=== PATIENT | male | born 1935 | race Caucasian/White ===

== ENCOUNTER 2022-03-21 08:17 | Outpatient (CLI) | payer MEDICARE, OTHER, SELFPAY ==
--- NOTE | ~2022-03-21 | CT_ITS ---
EXAMINATION: CT brain wo con DATE: 03/21/2022 08:35 INDICATION: Memory loss. TECHNIQUE: Computed tomography (CT) of the head was performed without intravenous contrast. The mA wa s adjusted according to patient size. Iterative reconstruction technique was employed. The dose-lengt h product was 605.33 mGy-cm. COMPARISON: Brain MRI 09/01/2010 FINDINGS: There is no intracranial hemorrhage, acute infarction, or abnormal intracranial mass lesion . There are scattered areas of low attenuation in the cerebral white matter, which is within normal l imits for the patient's age. The ventricles are normal in size. There is mild mucosal thickening in t he paranasal sinuses. The orbits are normal. The mastoid air cells are normal. IMPRESSION: 1. Normal aging brain. Reviewed, dictated and finalized at location A. IMPRESSION: 1. Normal aging brain.
== END 2022-03-21 08:18 | disposition home or self-care (01) ==
PROVIDERS: PCP Family Medicine; Visit Provider Physician Assistant Medical
DX: R53.83 Other fatigue (principal); R41.3 Other amnesia
CPT/HCPCS: 70450

== ENCOUNTER 2022-06-07 14:27 | Inpatient (IN) | payer MEDICARE, OTHER, SELFPAY ==
[2022-06-07] VITALS (9 sets, daily range): BP systolic 118–176; BP diastolic 59–99; PULSE 64–95; RESP 14–23; TEMP 36.3–36.5; O2SAT 95–100; BMI 20.7
--- NOTE | ~2022-06-07 | CT_ITS ---
EXAMINATION: CT abdomen pelvis w con DATE: 06/07/2022 16:56 INDICATION: Hernia. TECHNIQUE: Computed tomography (CT) of the abdomen and pelvis was performed with 100 cc Omnipaque 350 intravenous contrast. The dose-length product was 235.36 mGy-cm. Automated exposure control and iter ative reconstruction technique were employed. COMPARISON: None. FINDINGS: Lung bases are unremarkable. Heart size normal. There is atherosclerosis. Status post moustapha cystectomy. Calcified granulomas of the spleen. The pancreas, adrenal glands are unremarkable. There are bilateral renal cysts, largest in the left kidney measuring 6.2 cm. There are bilateral inguinal hernias with fluid in the right inguinal canal. Bladder is unremarkable. Prostate gland is enlarged. Colonic diverticulosis without evidence for diverticulitis. No free air or free fluid. Small sclerotic lesion left ilium posteriorly, nonspecific. No additional lytic or danni stic lesions. There is atherosclerosis of the aorta without aneurysm. No lymphadenopathy. IMPRESSION: 1. Bilateral inguinal hernias with the right hernia containing fluid. 2: Sclerotic lesion of the left ilium. Cannot exclude metastatic disease. Correlate for history of ma lignancy. Reviewed, dictated and finalized at location A. IAC REHABILITATION SPECIALIST IMPRESSION: 1. Bilateral inguinal hernias with the right hernia containing fluid. 2: Sclerotic lesion of the left ilium. Cannot exclude metastatic disease. Corre late for history of malignancy.
[2022-06-07] MEDS: SODIUM CHLORIDE 0.9% IV 1,000 ML 999 ML IV CONT (16:21)
[2022-06-07 16:22] LABS: Basophils Absolute Auto 0.1 K/mm3 (0.0-0.1); Eosinophils Absolute Auto 0.1 K/mm3 (0-0.3); Eosinophils Percent Auto 1.1 % (0-4.4); Hematocrit 50.3 % (42.0-52.0); Hemoglobin 16.6 g/dL (14.0-18.0); Immature Granulocyte Absolute 0.02 K/mm3 (0.00-0.031); Immature Granulocyte Percent A 0.3 % (0-0.5); Lymphocytes Absolute Auto 0.93 K/mm3 (0.9-3.2); Lymphocytes Percent Auto 12.7 % (18.3-44.2); Mean Corpuscular Hemoglobin 30.4 pg (26-34); Mean Corpuscular Volume 92.1 fl (80-100); Mean Platelet Volume 9.9 fl (7.4-10.4); Monocytes Absolute Auto 0.6 K/mm3 (0.1-0.6); Monocytes Percent Auto 8.6 % (2.6-8.5); Neutrophils Absolute Auto 5.6 K/mm3 (1.3-6.7); Neutrophils Percent Auto 76.3 % (45.5-73.1); Platelet Count Result 233 k/mm3 (150-375); Red Blood Count 5.46 M/mm3 (4.6-6.20); Red Cell Distribution Width 12.7 % (11.5-14.5); White Blood Count 7.3 K/mm3 (4.5-10.0)
[2022-06-07] MEDS: HYDROmorphone HCL INJ (*CRX) 1 MG/ML SYR IV PUSH (16:22)
[2022-06-07 16:33] LABS: Lactic Acid Reflex 0.8 mmol/L (0.7-2.0)
[2022-06-07 16:34] LABS: INR 1.1; Partial Thromboplastin Time 30.4 SECONDS (22.3-36.8); Prothrombin Time 13.6 Seconds (11.1-14.7)
[2022-06-07 16:35] LABS: Alanine Aminotransferase 23 U/L (6-50); Albumin Level 3.9 g/dL (3.5-5.1); Alkaline Phosphatase 69 U/L (38-126); Anion Gap 8 mmol/L (8-16); Aspartate Amino Transferase 24 U/L (17-59); Bilirubin,Total 0.7 mg/dL (0.2-1.3); Blood Urea Nitrogen 13 mg/dL (9-20); Calcium 8.7 mg/dL (8.4-10.2); Carbon Dioxide 26 mmol/L (22-30); Chloride 105 mmol/L (98-107); Estimated CRCL calculation 46 ml/min; Estimated Glomerular Filt Rate > 60; Glucose 102 mg/dL (65-110); Potassium 4.1 mmol/L (3.4-5.0); Sodium 139 mmol/L (137-145)
--- NOTE | 2022-06-07 18:07 | ED.ABDPAIN ---
HPI - Abdominal Pain General Chief Complaint: Abdominal Pain Stated Complaint: Hernia Time Seen by Provider: 06/07/22 15:42 History of Present Illness HPI narrative: Patient is an 86-year-old male who presents to the ER with right inguinal pain. Reports he is walking on a treadmill last night when his leg came off the side and he felt a stretching pain in his right groin. He then woke today and had swelling and pain in the groin. He went to his PCPs office who attempted to reduce what is believed to be an inguinal hernia. Patient did not tolerate this. He has pain with any type of movement though he is still able to ambulate. Reports he has not had a bowel movement today and is unsure if he is passed gas. No abdominal distention or vomiting. No fevers or chills or sweats. Reports he is otherwise healthy. Related Data Allergies Allergy/AdvReac Type Severity Reaction Status Date / Time No Known Allergies Allergy Unknown Verified 06/07/22 13:42 Review of Systems Review of Systems: All systems reviewed & are unremarkable except as noted in HPI and below Constitutional: Constitutional: Denies chills, Denies fatigue and Denies fever(s) ENT: Denies nasal congestion and Denies sore throat Cardiovascular: Cardiovascular: Denies chest pain, Denies rapid heart rate and Denies radiating jaw, neck or arm pain Respiratory: Respiratory: Denies cough and Denies dyspnea Gastrointestinal: Gastrointestinal: Denies abdominal pain, Denies bloating, Reports constipation, Denies nausea and Denies vomiting Comments: Inguinal mass Genitourinary: Genitourinary: Denies hematuria, Denies dysuria and Denies urinary frequency Musculoskeletal: Musculoskeletal: Denies back pain, Denies arthralgias and Denies joint swelling [facility] Past Medical History Medical History (Updated 06/07/22 @ 22:02 by Ernie Johnson MD) Neck pain Surgical History Surgical History (Updated 06/07/22 @ 21:58 by Ernie Johnson MD) History of appendectomy Social History Social History (Updated 06/07/22 @ 13:43 by Aliya Hunter SENIOR [employer]BILE SOLUTIONS ARCHITECT) Smoking status: Never smoker Second hand tobacco smoke exposure: No Alcohol intake: never Substance use: never Substance use type: does not use Lack of Transportation: No Lack of Food: Never True Current Housing: I Have Housing Concerned About Future Housing: No Difficulty Paying Gas/Electric Bills: No Difficulty Paying for Meds: No Currently Unemployed: No Difficulty w/ Childcare or Family Care: No Gender identity (if verbalized by the patient): Male Spiritual care concerns: No Agree to blood products: Yes Exam Narrative: GENERAL: Uncomfortable-appearing, well-nourished, and in no acute distress. HEAD: Normocephalic, atraumatic. ENT: Mucous membranes moist. NECK: Supple. CHEST: Clear to auscultation. No respiratory distress. HEART: Regular rate and rhythm. Normal peripheral pulses. ABDOMEN: Soft, nontender, nondistended, normal active bowel sounds. Large mass right inguinal region consistent with inguinal hernia. Very tender to palpation. No erythema. No involvement into the scrotum. EXTREMITIES: Normal range of motion. No edema. SKIN: Warm, dry, no rash. NEURO: Alert and oriented x3. PSYCH: Normal mood and affect. Procedures Procedural Sedation Procedural Sedation #1: Procedural Sedation Date: 06/07/22 Procedural Sedation Time: 18:43 Presedation Evaluation: Patient awake alert and oriented. Having pain due to incarcerated right inguinal hernia. Procedure: Hernia reduction. Provider Performed: other (Sedation performed by Dr. Dominguez, procedure performed by Dr. Johnson.) Time Out: 1293 Informed Consent Obtained: yes Equipment in Room: bag and mask, capnography, coffin maker, crash cart, oxygen, pulse oximeter and suction Plan for Sedation: moderate sedation ASA Class: II Mallampati Classificatio
--- NOTE | 2022-06-07 18:52 | PC.NURSE ---
DR. SCHWAB ADMINISTERED THIS PT 10MG ETOMIDATE AT 1843
[2022-06-07 20:23] LABS: SARS-CoV-2 RNA PCR Negative
[2022-06-07] MEDS: SODIUM CHLORIDE 0.9% IV 1,000 ML 100 ML IV CONT (21:33)
[2022-06-07] MEDS: MORPHINE SULFATE (*CRX) 4 MG/ML INJ IV PUSH (21:33)
[2022-06-08] VITALS (16 sets, daily range): BP systolic 103–142; BP diastolic 51–82; PULSE 70–83; RESP 11–20; TEMP 36.4–37.3; O2SAT 97–100
[2022-06-08] MEDS: LORazepam INJ (*CRX) 2 MG/ML VIAL 0.5 MG IV PUSH ×2 (00:21→23:07)
--- NOTE | 2022-06-08 00:29 | PC.NURSE ---
Patient admitted to 342 from ER with [facility]. Pt alert to self and at times-to place. Forgetful, impulsive, periods of crying when upset. Poor short term memory. Refers to past events frequently. Cannot remember to follow given instructions. Given morphine 4mg for hernia pain with no relief of pain Gets out of bed every couple of minutes , states he has to urinate. Voided 50ml upon arrival to unit then another 50ml or less in BSC. Patient wanted all clothes off. IV continually alarms due to AC placement. New site started and IVF moved. Bed alarm on. Pt attempts to get out of bed as soon as staff leaves room, states needs to urinate. Pt unable to do so. Bladder scan shows approximately 100ml. Charge nurse and nurse airport operations supervisor notified of pt's impulsive behavior. Attending notified- order received for tadeo and ativan. Inserted 16F tadeo 200ml return cl yellow over 10-15mintues. This nurse sat in patient's room, while pt crying and pulling at tadeo. Then stated he had to have BM . Up to BSC x10 min- no BM. Given ativan --pt asleep 15min later. Bed alarm on.frequent rounding. NPO for possible surgery in am
[2022-06-08 06:30] LABS: Basophils Absolute Auto 0.1 K/mm3 (0.0-0.1); Basophils Percent Auto 0.7 % (0.2-1.2); Eosinophils Absolute Auto 0.1 K/mm3 (0-0.3); Eosinophils Percent Auto 1.5 % (0-4.4); Hemoglobin 15.5 g/dL (14.0-18.0); Immature Granulocyte Absolute 0.02 K/mm3 (0.00-0.031); Immature Granulocyte Percent A 0.3 % (0-0.5); Lymphocytes Absolute Auto 1.04 K/mm3 (0.9-3.2); Lymphocytes Percent Auto 13.9 % (18.3-44.2); Mean Corpuscular Hemoglobin 30.6 pg (26-34); Mean Corpuscular Volume 92.9 fl (80-100); Mean Platelet Volume 9.7 fl (7.4-10.4); Monocytes Absolute Auto 0.8 K/mm3 (0.1-0.6); Monocytes Percent Auto 11.2 % (2.6-8.5); Neutrophils Absolute Auto 5.4 K/mm3 (1.3-6.7); Neutrophils Percent Auto 72.4 % (45.5-73.1); Platelet Count Result 187 k/mm3 (150-375); Red Blood Count 5.06 M/mm3 (4.6-6.20); Red Cell Distribution Width 12.5 % (11.5-14.5); White Blood Count 7.5 K/mm3 (4.5-10.0)
--- NOTE | 2022-06-08 06:37 | PC.NURSE ---
After pt received ativan , pt slept rest of the night. Per pt at 0630, I don't know what you did , but your a miracle worker Pt calm, relaxed. no further attempts to exit bed. Spouse called to get pt status. Spouse stated that the plan would be for pt to return home with her. Per spouse, the daughter is the POA. Pt remains NPO
[2022-06-08 06:42] LABS: Alanine Aminotransferase 20 U/L (6-50); Albumin Level 3.5 g/dL (3.5-5.1); Alkaline Phosphatase 57 U/L (38-126); Anion Gap 5 mmol/L (8-16); Aspartate Amino Transferase 29 U/L (17-59); Bilirubin,Total 0.9 mg/dL (0.2-1.3); Blood Urea Nitrogen 9 mg/dL (9-20); Calcium 8.2 mg/dL (8.4-10.2); Carbon Dioxide 24 mmol/L (22-30); Chloride 105 mmol/L (98-107); Estimated CRCL calculation 57 ml/min; Estimated Glomerular Filt Rate > 60; Glucose 81 mg/dL (65-110); Potassium 3.6 mmol/L (3.4-5.0); Sodium 134 mmol/L (137-145)
[2022-06-08] MEDS: SODIUM CHLORIDE 0.9% IV 1,000 ML 100 ML IV CONT (06:53)
--- NOTE | 2022-06-08 11:11 | PM.IMHP ---
H&P: HPI History of Present Illness Date/Time: 06/08/22 11:11 Chief Complaint: Right groin pain Narrative: patient is an 86-year-old man who was walking on a treadmill the night before last. His leg came off the side any felt a stretching pain in his right groin. He woke up today with a lump in the right groin and pain. He saw his primary care physician who tried to reduce the right inguinal hernia and was unsuccessful. He came to the emergency room last night. Attempts were made to reduce this hernia under sedation. These were temporarily successful but the lump has recurred and remains painful. Through the night he had the sensation of needing to urinate. A Burroughs catheter was placed. 850 cc of urine since midnight has been recorded per the Burroughs catheter. He is seen this morning and still has an incarcerated right inguinal hernia. He is taken to surgery today for repair. Review of Systems Review of Systems: All systems reviewed & are unremarkable except as noted in HPI and below ( HPI and those items noted below) Constitutional: Constitutional: Denies chills and Denies fever(s) Cardiovascular: Cardiovascular: Denies chest pain, Denies diaphoresis, Denies dyspnea and Denies paroxysmal nocturnal dyspnea Respiratory: Respiratory: Denies chest congestion, Denies cough and Denies dyspnea Integumentary/Breasts: Skin/Breast: Denies lesions and Denies rash PMFSH Past Medical History Medical History Neck pain Surgical History Surgical History History of appendectomy Social History Social History Smoking status: Former smoker Tobacco type: cigarettes Second hand tobacco smoke exposure: No Alcohol intake: never Substance use: never Substance use type: does not use Lack of Transportation: No Lack of Food: Never True Current Housing: I Have Housing Concerned About Future Housing: No Difficulty Paying Gas/Electric Bills: No Difficulty Paying for Meds: No Currently Unemployed: No Education: High School Diploma/GED Difficulty w/ Childcare or Family Care: No Gender identity (if verbalized by the patient): Male Spiritual care concerns: No Agree to blood products: Yes Meds Home Medications and Allergies Home Medications Medication Instructions Recorded Confirmed Type sertraline 25 mg tablet 25 mg PO DAILY #30 tabs 04/10/22 06/07/22 Rx Allergies Allergy/AdvReac Type Severity Reaction Status Date / Time No Known Allergies Allergy Unknown Verified 06/07/22 13:42 Vital Signs Vital Signs - 24 hr 06/07/22 14:28 06/07/22 18:41 06/07/22 18:45 Temperature 36.5 C 36.4 C 36.4 C Pulse Rate 95 Pulse Rate [Monitor] 64 95 Respiratory Rate 16 18 23 H Blood Pressure 176/75 H Blood Pressure [Left Arm] 145/70 H 167/99 H Pulse Oximetry 100 100 95 Oxygen Delivery Room Air Room Air Nasal Cannula Oxygen Flow Rate 4 06/07/22 19:00 06/07/22 19:15 06/07/22 18:50 Temperature 36.4 C 36.3 C L 36.4 C Pulse Rate Pulse Rate [Monitor] 88 85 84 Respiratory Rate 21 H 14 20 Blood Pressure Blood Pressure [Left Arm] 118/76 164/80 H 169/65 H Pulse Oximetry 100 100 99 Oxygen Delivery Nasal Cannula Nasal Cannula Nasal Cannula Oxygen Flow Rate 4 4 4 06/07/22 18:55 06/07/22 19:30 06/07/22 21:18 Temperature 36.3 C L 36.3 C L 36.4 C Pulse Rate 86 Pulse Rate [Monitor] 79 87 Respiratory Rate 22 H 18 20 Blood Pressure 145/85 H Blood Pressure [Left Arm] 140/59 L 146/86 H Pulse Oximetry 100 100 98 Oxygen Delivery Nasal Cannula Room Air Oxygen Flow Rate 4 06/08/22 00:00 06/08/22 04:00 Temperature 36.4 C 36.8 C Pulse Rate 81 80 Pulse Rate [Monitor] Respiratory Rate 20 20 Blood Pressure 139/72 103/82 Blood Pressure [Left Arm] Pulse Oximetry 97 98 Oxygen Delivery Oxygen Flow Rate Exam Co
--- NOTE | 2022-06-08 11:21 | WPDHPUPDATE1 ---
History and Physical Update Update Date/Time: 06/08/22 11:21 History and Physical has been reviewed, including an updated exam of the patient. There are NO changes in the patient's condition. Risks, benefits, and alternatives have been discussed and questions answered. Patient agrees to proceed with procedure.
--- NOTE | 2022-06-08 12:27 | WPDANESEPPF ---
Anes - Initial Pre Proc Eval Procedure: Operation Date: 06/08/22 12:00 Proposed Procedures p Open Right Incarcerated Inguinal Hernia Repair(Right) - Michael Cao MD Date/Time: 06/08/22 12:27 Surgeon: Michael Cao MD Pre Op Diagnosis: Incarcerated Hernia Patient Data Age: 86 Gender: M Height: 1.7 m Weight: 60.2 kg Last Vital Signs Temp 37.1 C 06/08/22 12:05 Pulse 71 06/08/22 12:05 Resp 16 06/08/22 12:05 BP 115/51 L 06/08/22 12:05 Pulse Ox 99 06/08/22 12:05 O2 Del Method Room Air 06/07/22 19:30 O2 Flow Rate 4 06/07/22 19:15 Allergies Allergy/AdvReac Type Severity Reaction Status Date / Time No Known Allergies Allergy Unknown Verified 06/07/22 13:42 Home Medications Medication Instructions Recorded Confirmed Type sertraline 25 mg tablet 25 mg PO DAILY #30 tabs 04/10/22 06/07/22 Rx Laboratory Tests 06/07/22 06/07/22 06/07/22 16:17 16:17 16:17 WBC 7.3 K/mm3 K/mm3 (4.5-10.0) RBC 5.46 M/mm3 M/mm3 (4.6-6.20) Hgb 16.6 g/dL g/dL (14.0-18.0) Hct 50.3 % % (42.0-52.0) MCV 92.1 fl fl (80-100) MCH 30.4 pg pg (26-34) MCHC 33.0 g/dl g/dl (32-36) RDW 12.7 % % (11.5-14.5) Plt Count 233 k/mm3 k/mm3 (150-375) MPV 9.9 fl fl (7.4-10.4) Immature Gran % (Auto) 0.3 % % (0-0.5) Neut % (Auto) 76.3 % H % (45.5-73.1) Lymph % (Auto) 12.7 % L % (18.3-44.2) [place] % (Auto) 8.6 % H % (2.6-8.5) Eos % (Auto) 1.1 % % (0-4.4) Baso % (Auto) 1.0 % % (0.2-1.2) Lymph # (Auto) 0.93 K/mm3 K/mm3 (0.9-3.2) [place] # (Auto) 0.6 K/mm3 K/mm3 (0.1-0.6) Eos # (Auto) 0.1 K/mm3 K/mm3 (0-0.3) Baso # (Auto) 0.1 K/mm3 K/mm3 (0.0-0.1) Abs Immat Gran (auto) 0.02 K/mm3 K/mm3 (0.00-0.031) Absolute Neuts (auto) 5.6 K/mm3 K/mm3 (1.3-6.7) Absolute Nucleated RBC 0.0 K/mm3 K/mm3 (0.0-0.012) Nucleated RBC % 0.0 % % (0.0-0.2) PT 13.6 Seconds Seconds (11.1-14.7) INR 1.1 APTT 30.4 SECONDS SECONDS (22.3-36.8) Sodium 139 mmol/L mmol/L (137-145) Potassium 4.1 mmol/L mmol/L (3.4-5.0) Chloride 105 mmol/L mmol/L (98-107) Carbon Dioxide 26 mmol/L mmol/L (22-30) Anion Gap 8 mmol/L mmol/L (8-16) BUN 13 mg/dL mg/dL (9-20) Creatinine 0.90 mg/dL mg/dL (0.7-1.3) Estim Creat Clear Calc 46 ml/min ml/min Estimated GFR > 60 (59 - ) Glucose 102 mg/dL mg/dL (65-110) Lactic Acid Calcium 8.7 mg/dL mg/dL (8.4-10.2) Total Bilirubin 0.7 mg/dL mg/dL (0.2-1.3) AST 24 U/L U/L (17-59) ALT 23 U/L U/L (6-50) Alkaline Phosphatase 69 U/L U/L (38-126) Total Protein 7.0 g/dL g/dL (6.3-8.2) Albumin 3.9 g/dL g/dL (3.5-5.1) SARS-CoV-2 RNA (RT-PCR) 06/07/22 06/07/22 06/08/22 16:17 19:44 06:17 WBC 7.5 K/mm3 K/mm3 (4.5-10.0) RBC 5.06 M/mm3 M/mm3 (4.6-6.20) Hgb 15.5 g/dL g/dL (14.0-18.0) Hct 47.0 % % (42.0-52.0) MCV 92.9 fl fl (80-100) MCH 30.6 pg pg (26-34) MCHC 33.0 g/dl g/dl (32-36) RDW 12.5 % % (11.5-14.5) Plt Count 187 k/mm3 k/mm3 (150-375) MPV 9.7 fl fl (7.4-10.4) Immature Gran % (Auto) 0.3 % % (0-0.5) Neut % (Auto) 72.4 % % (45.5-73.1) Lymph % (Auto) 13.9 % L % (18.3-44.2) [place] % (Auto) 11.2 % H % (2.6-8.5) Eos % (Auto) 1.5 % % (0-4.4) Baso % (Auto) 0.7 % % (0.2-1.2) Lymph # (Auto) 1.04 K/mm3 K/mm3 (0.9-3.2) [place] # (Auto) 0.8 K/mm3 H K/mm3 (0.1-0.6) Eos # (Auto) 0.1 K/mm3 K/mm3 (0-0.3) Baso
[2022-06-08] MEDS: ceFAZolin 2 GM/D5W 50 ML 2 GM/50 ML BAG IVPB (12:50)
[2022-06-08] MEDS: BUPIVACAINE HCL 0.5% PF 30 ML VIAL INFILTRATE (12:55)
[2022-06-08] MEDS: LACTATED RINGERS 1,000 ML 30 ML IV CONT (13:46)
--- NOTE | 2022-06-08 13:52 | W.PM.PROC2 ---
Procedure Note - Detailed Date of Procedure 06/08/22 Pre-op Diagnosis Incarcerated right inguinal hernia Post-op Diagnosis Other (Incarcerated recurrent right inguinal hernia) Procedure Performed Repair incarcerated recurrent right inguinal hernia with large PerFix Light plug and patch Surgeon Michael Cao MD Project Manager Process Development Carry more MANAGER CONFIGURATION Anesthesia General (G IV S), Local (0.5% bupivacaine) and None (Xaracoll) Indications Patient presented to the emergency room yesterday with a large right groin bulge and pain. It was partially reduced using sedation but came back. He then developed some urinary retention last night and had to have a catheter placed. He has a persistent incarcerated right inguinal hernia and is taken to surgery now for repair. Findings This was a small direct hernia. There was no bowel involvement. Description of Procedure Patient was taken to surgery and anesthesia was introduced. The right groin and genitalia were prepped and draped. Not noted on his preop exam but now evident with the better Light in surgery was the patient did have a right inguinal scar. The proposed incision was marked on the skin. Local anesthesia was infiltrated over the anticipated incision as well as into the subcutaneous. Incision was made and dissection was carried down through the subcutaneous. Crossing veins were cauterized and divided. It was obvious that the patient did have a previous right inguinal hernia as there were numerous Ethibond suture throughout the area. We dissected down to the external oblique aponeurosis. The aponeurosis was exposed as was the external ring. We then infiltrated local deep to the aponeurosis. The aponeurosis was opened laterally extended medially through the external ring. The leaves of the aponeurosis were free from the underlying inguinal canal contents including the large purplish incarcerated recurrent hernia. Once both the leaves of the aponeurosis were freed, the cord was mobilized medially and encircled with a Mcloud drain. The cord was further mobilized back to the internal ring. The ilioinguinal nerve was never seen on the cord. It was now evident this was the direct recurrence. The hernia sac was dissected free from the cord structures and the rest of the inguinal canal floor. It was dissected back to its neck. I then divided through the transversalis fascia circumferentially. This still left a very large sac and so I excised the hernia sac as well. I then used a 3-0 Vicryl to create a pursestring suture around the edges of the hernia sac to close it. I further reinforced this with a running suture to close the hernia sac over the pursestring. The sac was sent to pathology as a specimen. I dunked to the edges of the hernia sac into the retroperitoneum. A small, 1 cm opening was noted. I placed a Ray-Jaden into the defect to make some room for a hernia patch. I then used the large PerFix Light plug and placed it in the defect. The edges were sutured to the transversalis fascia with interrupted 3-0 Vicryl suture. I then cut the patch to the appropriate size. It was placed over the inguinal canal floor. The lateral leaves were passed beyond the cord. I then laid the 1st piece of Xaracoll over the patch. The cord was placed over the Xaracoll. The external oblique aponeurosis was closed with interrupted 3-0 Vicryl suture. The 2nd piece of Xaracoll was placed. Bel's fascia was closed with interrupted 3-0 Vicryl suture. The last piece of Xaracoll was placed in the subcutaneous. The skin was loosely approximated with interrupted subcuticular 4-0 Vicryl skin suture. Finally the skin was closed with a running 4-0 Monocryl skin suture. The wound was dressed with Exofin surgical adhesive. The patient was awakened and taken to recovery in good condition. Sponge and needle counts were correct x2. Implants Large PerFix Light plug and patch Estimated Blood Loss -5 Urine Output 125 Drains No Packin
--- NOTE | 2022-06-08 14:16 | SUR.PHASEI ---
1415: Simple mask removed.
[2022-06-08] MEDS: LACTATED RINGERS 1,000 ML 80 ML IV CONT (18:11)
[2022-06-08] MEDS: HYDROcodone/acetaminophen (*CRX) 7.5-325 MG TABLET 1 TAB PO (20:58)
[2022-06-08] MEDS: ENOXAPARIN 30 MG/0.3 ML SYRINGE SUB-Q (21:00)
[2022-06-08] MEDS: SENNA/DOCUSATE SODIUM TABLET 2 TAB PO (21:00)
[2022-06-08] MEDS: FAMOTIDINE 20 MG TABLET PO (21:05)
[2022-06-09] VITALS: BP 131/58; PULSE 90; RESP 24; TEMP 36.6; O2SAT 98
[2022-06-09 00:48] VITALS: BP 127/68; PULSE 84; RESP 20; TEMP 37.2; O2SAT 97
[2022-06-09] MEDS: MORPHINE SULFATE (*CRX) 4 MG/ML INJ 2 MG IV PUSH (03:10)
[2022-06-09] MEDS: HYDROcodone/acetaminophen (*CRX) 7.5-325 MG TABLET 1 TAB PO (04:33)
[2022-06-09 04:48] VITALS: BP 119/61; PULSE 79; RESP 20; TEMP 37.1; O2SAT 98
--- NOTE | 2022-06-09 06:32 | PC.NURSE ---
Patient became more confused as the evening shift progressed. Unable to comprehend instructions. Unable to use call light. Pt unaware of surroundings, asked several times to go to his bed and points across room. Does not recognize staff as hospital personnel. Pt questions who everyone is in his area . Accused staff of doing experiments on him and taking his money. Tolerated dinner and po fluids Pt moves in bed much of the time, adjusting blankets. Took off clothes. Pulled off SCD's . Blood from meatus of tadeo due to pt rolling in bed and touching catheter. Incision with glue intact, open to air. Pain meds and ativan given to pt. Fall precautions. Bed alarm. frequent rounding. Staff take turns to sit in room to monitor pt. IVF saline locked . Pt presently yelling, cursing at staff to leave him alone. Call light in reach; however pt has never used it since admission due to dementia. Continue to monitor.
[2022-06-09 06:40] LABS: Hematocrit 43.4 % (42.0-52.0); Hemoglobin 14.3 g/dL (14.0-18.0); Mean Corpuscular HGB Conc 32.9 g/dl (32-36); Mean Corpuscular Hemoglobin 29.7 pg (26-34); Mean Corpuscular Volume 90.2 fl (80-100); Mean Platelet Volume 10.6 fl (7.4-10.4); Platelet Count Result 187 k/mm3 (150-375); Red Blood Count 4.81 M/mm3 (4.6-6.20); Red Cell Distribution Width 12.4 % (11.5-14.5); White Blood Count 7.2 K/mm3 (4.5-10.0)
[2022-06-09 06:50] LABS: Anion Gap 3 mmol/L (8-16); Blood Urea Nitrogen 11 mg/dL (9-20); Calcium 7.9 mg/dL (8.4-10.2); Carbon Dioxide 27 mmol/L (22-30); Chloride 104 mmol/L (98-107); Estimated CRCL calculation 50 ml/min; Estimated Glomerular Filt Rate > 60; Glucose 101 mg/dL (65-110); Potassium 3.7 mmol/L (3.4-5.0); Sodium 134 mmol/L (137-145)
[2022-06-09 08:00] VITALS: O2SAT 98
[2022-06-09] MEDS: SERTRALINE HCL 25 MG TABLET PO (09:33)
[2022-06-09] MEDS: polyethylene glycoL 3350 17 GM POWD.PACK PO (09:33)
[2022-06-09] MEDS: FAMOTIDINE 20 MG TABLET PO ×2 (09:33→20:08)
[2022-06-09] MEDS: ENOXAPARIN 30 MG/0.3 ML SYRINGE SUB-Q ×2 (09:33→20:08)
--- NOTE | 2022-06-09 09:58 | PM.PNGS ---
Progress Note: A&P Assessment and Plan (1) Incarcerated inguinal hernia: Code(s): K40.30 - Unilateral inguinal hernia, with obstruction, without gangrene, not specified as recurrent Status: Acute Assessment and Plan: Repair intact. Incision looks good. (2) Urinary retention: Code(s): R33.9 - Retention of urine, unspecified Status: Acute Assessment and Plan: Will remove Burroughs catheter today. If still trouble voiding, will replace and consult Urology. (3) SunDown syndrome: Code(s): F05 - Delirium due to known physiological condition Status: Acute Assessment and Plan: Will minimize narcotics. Care coordination may need to arrange for placement temporarily as patient lives at home. Hopefully will resolve. Subjective Subjective Date/Time Seen: 06/09/22 09:58 Post Op day: 1 Patient reports: other (Sleepy and confused) Interval history: Patient very confused all night. Up out of bed. This is definitely different than he was all day yesterday. This morning he is very sleepy but thinks he is at home. Exam Const: General: confusion and lethargic GI: Inspection: non-distended, incision (Looks good, dry and intact) and no visible herniation : Male General Exam: No hernia Objective Data Vital Signs Vital Signs: Vital Signs - 24 hr 06/08/22 12:05 06/08/22 13:46 06/08/22 13:54 Temperature 37.1 C 36.6 C Pulse Rate 71 77 72 Respiratory Rate 16 11 L 12 Blood Pressure 115/51 L 142/71 H 132/76 Pulse Oximetry 99 100 100 Oxygen Delivery Simple Face Mask Simple Face Mask Oxygen Flow Rate 9 9 06/08/22 14:00 06/08/22 14:15 06/08/22 14:30 Temperature 36.9 C 37.3 C Pulse Rate 76 70 73 Respiratory Rate 13 16 13 Blood Pressure 127/65 131/60 123/53 L Pulse Oximetry 100 100 100 Oxygen Delivery Simple Face Mask Room Air Room Air Oxygen Flow Rate 9 06/08/22 14:45 06/08/22 14:52 06/08/22 15:20 Temperature 36.9 C 36.5 C Pulse Rate 74 74 83 Respiratory Rate 12 12 16 Blood Pressure 113/72 125/62 126/51 L Pulse Oximetry 100 100 98 Oxygen Delivery Room Air Room Air Oxygen Flow Rate 06/08/22 15:35 06/08/22 16:05 06/08/22 17:05 Temperature 36.8 C 36.8 C 36.8 C Pulse Rate 81 73 82 Respiratory Rate 16 16 16 Blood Pressure 122/60 126/52 L 122/51 L Pulse Oximetry 98 100 100 Oxygen Delivery Oxygen Flow Rate 06/08/22 19:40 06/09/22 00:48 06/09/22 04:48 Temperature 37.1 C 37.2 C 37.1 C Pulse Rate 81 84 79 Respiratory Rate 20 20 20 Blood Pressure 118/54 L 127/68 119/61 Pulse Oximetry 100 97 98 Oxygen Delivery Oxygen Flow Rate 06/09/22 00:00 Temperature 36.6 C Pulse Rate 90 Respiratory Rate 24 H Blood Pressure 131/58 L Pulse Oximetry 98 Oxygen Delivery Oxygen Flow Rate Intake/Output Intake/Output: Intake & Output 06/06/22 06/07/22 06/08/22 06/09/22 23:59 23:59 23:59 23:59 Intake Total 1000 1590 Output Total 2230 600 Balance 1000 -640 -600 Meds/Results Medications: Active Medications Generic Name Dose Route Start Last Admin Trade Name Freq PRN Reason Stop Dose Admin Acetaminophen 500 mg 06/08/22 15:03 Acetaminophen 500 Mg Tablet PO Q6H PRN Mild Pain (1-3) or Fever Enoxaparin Sodium 30 mg 06/08/22 21:00 06/09/22 09:33 Enoxaparin 30 Mg/0.3 Ml Syringe SUB-Q 30 mg Q12HR LAURIE Administration Famotidine 20 mg 06/08/22 21:00 06/09/22 09:33 Famotidine 20 Mg Tablet PO 20 mg Q12HR LAURIE Administration Lorazepam 0.5 mg 06/07/22 23:34 06/08/22 23:07 Lorazepam Inj (*Crx) 2 Mg/Ml Vial IV PUSH 0.5 mg Q2H PRN Administration Anxiety Polyethylene Glycol 17 gm 06/09/22 09:00 06/09/22 09:33 Polyethylene Glycol 3350 17 Gm Powd.Pack PO 17 gm QAM LAURIE Administration Senna/Docusate Sodium 2 tab 06/08/22 21:00 06/08/22 21:00 Senna/Docusate Sodium Tablet PO 2 tab HS LAURIE Administration Sertraline HCl 25 mg 06/09/22 09:00 06/09/22 09:33 Se
[2022-06-09 16:59] VITALS: BP 131/54; PULSE 85; RESP 16; TEMP 36.4; O2SAT 100
[2022-06-09] MEDS: SENNA/DOCUSATE SODIUM TABLET 2 TAB PO (20:08)
[2022-06-09] MEDS: LORazepam INJ (*CRX) 2 MG/ML VIAL 0.5 MG IV PUSH (22:51)
--- NOTE | 2022-06-09 23:38 | PM.IMCN ---
Assessment and Plan Assessment and plan (1) Confusion: Code(s): R41.0 - Disorientation, unspecified Status: Acute Assessment and Plan: -the patient stated that he knows he was confused last night and that he thought he was in his own home. -The patient may have sun downers. -also it may have been a reaction to the anesthesia. Or the pain medication. -patient is answering questions without difficulty today. He is alert orientated x4. -I will check a urinalysis as well. (2) Urinary retention: Code(s): R33.9 - Retention of urine, unspecified Status: Acute Assessment and Plan: -the nursing staff had difficulty inserting his Burroughs catheter. -the patient has only been dribbling small amounts of urine. He still continues to have difficulty urinating. -a bladder scan was performed and there was 300 cc in his bladder. -the nurse attempted to straight cath the patient was having difficulty. -he was started on Flomax and Urology has been consulted. -a coude catheter was inserted and left in place. (3) Incarcerated inguinal hernia: Code(s): K40.30 - Unilateral inguinal hernia, with obstruction, without gangrene, not specified as recurrent Status: Acute Assessment and Plan: -surgical site is free of signs and symptoms of infection. -postop care per surgical team. -DVT prophylaxis per surgical team and he is on subcu Lovenox. Plan I asked the patient why he was on sertraline and he stated that he is no longer on it. However to still listed on his home reconciliation sheet. HPI Data of Consult Consult date: 06/09/22 Requesting Physician: Michael Cao MD Primary Care Provider: Cheryl Campbell MD Consult Narrative Narrative: Dmitri Martinez is a 86 year old male who is fairly healthy. He tells me that he does not take any medication. The patient came into the emergency room on 06/08/2022 was walking on the treadmill the prior night 06/08/22 when his leg fell off the treadmill and he felt like he stretched his growing. The next day the patient saw his primary care doctor and try to reduce the right inguinal hernia and was unsuccessful. The patient came to the emergency room attempts were made to reduce the hernia under sedation. Burroughs catheter was placed at that time and the patient had 850 cc of urine drained from that Burroughs catheter. The patient was admitted to surgery please see surgical note for repair of incarcerated recurrent right inguinal hernia with large per fix like to plug and patch. The night of the surgery the patient became very confused because he thought he was still at home. The patient was confused and lethargic the day of surgery. The patient was also having some urinary retention. The Burroughs catheter was removed but the patient is still having difficulty urinating. He has only dribbling small amount and frequently going to the restroom. The patient was admitted to inpatient services per surgery and the hospitalist group was asked to consult on the date of service 06/09/2022. Review of Systems Review of Systems: See HPI All systems reviewed & are unremarkable except as noted in HPI and below Constitutional: Constitutional: Reports as per HPI and Reports no additional constitutional complaints Eyes: Eyes: Reports as per HPI and Reports no additional eye complaints ENT: Reports system reviewed and no additional complaints, except as documented and Reports Normal hearing present Cardiovascular: Cardiovascular: Reports no additional cardiovascular complaints Respiratory: Respiratory: Reports no additional respiratory complaints and Reports no additional respiratory complaints Gastrointestinal: Gastrointestinal: Reports as per HPI and Reports no additional gastrointestinal complaints Musculoskeletal: Musculoskeletal: Reports no additional musculoskeletal complaints Integumentary/Breasts: Skin/Breast: Reports system reviewed and no additional complaints,
[2022-06-10 00:52] LABS: Appearance Urine Clear (Clear); Bilirubin Urine Negative (Negative); Blood Urine 3+ (Negative); Color Urine Yellow (Yellow); Glucose Urine UA Negative (Negative); Ketones Urine Negative (Negative); Leukocyte Esterase Ur Negative LEU/UL (NEGATIVE); Nitrate Urine Negative (Negative); Protein Urine Negative (Negative)
[2022-06-10 00:54] LABS: Bacteria Urine Trace /hpf; Mucus Urine Rare /lpf; WBC Urine 0-3 /hpf (0-3)
[2022-06-10 01:20] LABS: Add Urine Microscopic? YES
[2022-06-10 06:29] LABS: Lactic Acid Reflex 0.9 mmol/L (0.7-2.0)
[2022-06-10 06:30] LABS: Alanine Aminotransferase 25 U/L (6-50); Albumin Level 3.5 g/dL (3.5-5.1); Alkaline Phosphatase 68 U/L (38-126); Anion Gap 6 mmol/L (8-16); Aspartate Amino Transferase 34 U/L (17-59); Bilirubin,Total 0.7 mg/dL (0.2-1.3); Blood Urea Nitrogen 9 mg/dL (9-20); Calcium 8.3 mg/dL (8.4-10.2); Carbon Dioxide 26 mmol/L (22-30); Chloride 106 mmol/L (98-107); Estimated CRCL calculation 57 ml/min; Estimated Glomerular Filt Rate > 60; Glucose 97 mg/dL (65-110); Magnesium 2.2 mg/dL (1.6-2.3); Potassium 3.5 mmol/L (3.4-5.0); Sodium 138 mmol/L (137-145)
[2022-06-10] MEDS: ENOXAPARIN 30 MG/0.3 ML SYRINGE SUB-Q (09:14)
[2022-06-10] MEDS: TAMSULOSIN HCL 0.4 MG CAPSULE PO (09:14)
[2022-06-10] MEDS: SERTRALINE HCL 25 MG TABLET PO (09:14)
[2022-06-10] MEDS: polyethylene glycoL 3350 17 GM POWD.PACK PO (09:15)
[2022-06-10] MEDS: FAMOTIDINE 20 MG TABLET PO (09:20)
--- NOTE | 2022-06-10 11:01 | WPDURCON ---
Assessment and Plan Assessment and plan (1) Urinary retention: Code(s): R33.9 - Retention of urine, unspecified Status: Acute Assessment and Plan: Continue tadeo catheter for 7-10 days. We will attempt a second voiding trial in the office. (2) History of elevated PSA: Code(s): Z87.898 - Personal history of other specified conditions Status: Acute Assessment and Plan: Will draw a PSA while in house, I expect it to be elevated d/t retention and tadeo catheter, but he has a history of elevated PSA with benign biopsy. He has a concerning lesion on his ileum that radiology is suspicious of metastatic cancer. (3) BPH (benign prostatic hyperplasia): Code(s): N40.0 - Benign prostatic hyperplasia without lower urinary tract symptoms Status: Acute Assessment and Plan: Continue Tamsulosin and Start Finasteride. Will get a baseline PSA prior to start of Finasteride as this will change the PSA. Urology Consult Note HPI Date Seen: 06/10/22 Time Seen: 08:30 Requesting Physician: Michael Cao MD Primary Care Provider: Cheryl Campbell MD Consult Narrative Reason for consult: Retention of Urine Narrative: Dmitri Martinez is a 86 year old male who presented to the ER initially on 06/07/22 with acute onset of right inguinal pain s/p falling off of his treadmill at home and hurting his right groin. He a CT scan to evaluate the area further which showed bilateral inguinal hernias and a sclerotic lesion of the ileum indicating possible metastatic disease, as well as BPH. He has no diagnosis of cancer that he is aware of. Simultaneously he had difficulty with urination in the ER and had the urge to urinate but was unable to do so. A catheter was then placed and 850cc of urine was drained. Multiple attempts were made to reduce his hernia in the right inguinal canal, however he continued to have pain there and it was determined the hernia was incarcerated and would need to be surgically repaired. He had his right inguinal hernia repair done by Dr. Cao on 06/08/22. WBC today is 7.2, creatinine is 0.70, UA shows just RBC's but is not indicative of infection. He had an attempted voiding trial yesterday according to his nurse, but he was unable to urinate and after 4 hours they replaced his tadeo and 400cc of urine was removed. He was started on Tamsulosin and we were consulted. He states that he has had nocturia, a slowed urine stream and daytime frequency for many years. He denies seeing a urologist, being on medicaiton for BPH or having any urologic problems in the past. However, he was a patient of Dr. Wu from [id number] for elevated PSA in which he had a biopsy of his prostate in 03/2010 that was benign. His most recent PSA at the office was 4.5 on 03/14/16, prior to this it was 6.3 in 02/2016. There have been no other recorded PSA's since. His son is at the bedside today but is not aware of this history. Review of Systems Cardiovascular: Cardiovascular: Denies chest pain Respiratory: Respiratory: Reports no additional respiratory complaints Gastrointestinal: Gastrointestinal: Denies abdominal pain, Denies nausea and Denies vomiting Genitourinary: Genitourinary: Denies hematuria, Denies dysuria, Denies flank pain, Reports urinary frequency, Reports urinary hesitancy, Denies urinary incontinence and Reports urinary urgency [facility] Past Medical History Medical History Dementia Neck pain Surgical History Surgical History History of appendectomy S/P hernia repair Social History Social History Social History: The patient lives with his . He has 1 son and 1 daughter. His children are the durable power tax associate attorney for healthcare. The patient is retired from the [employer] retired from [employer] services. The
--- NOTE | 2022-06-10 12:15 | PM.IMPN ---
Progress Note: A&P Assessment and Plan (1) Confusion: Code(s): R41.0 - Disorientation, unspecified Status: Acute Assessment and Plan: Noted to be confused at night Could be related to sundowners seems to be resolved (2) Urinary retention: Code(s): R33.9 - Retention of urine, unspecified Status: Acute Assessment and Plan: Noted unable to urinate Bladder scan indicated 300ml left over Urinary catheter reinserted Urology on board Continue flomax Will need to have a voiding trial in 7-10 days (3) Incarcerated inguinal hernia: Code(s): K40.30 - Unilateral inguinal hernia, with obstruction, without gangrene, not specified as recurrent Status: Acute Assessment and Plan: -surgical site is free of signs and symptoms of infection. -postop care per surgical team. -DVT prophylaxis per surgical team and he is on subcu Lovenox. Time Spent With Patient Time with patient: Greater than 35 minutes Subjective Date/time seen: 06/10/22 12:15 Interval history: 06/10/22 1215 Patient is doing ok. He was standing up in the room by himself. He has no pain. Son is present and is concerned about the catheter care. He thinks that the patient should be able to take care of it however, confusion is a question. He seems to be doing ok. He is stable for discharge at this time. Will need to follow up with urology in 7 days Consult date: 06/09/22 Dmitri Martinez is a 86 year old male who is fairly healthy.? He tells me that he does not take any medication.? The patient came into the emergency room on 06/08/2022? was walking on the treadmill the prior night 06/08/22 when his leg fell off the treadmill and he felt like he stretched his growing.? The next day the patient saw his primary care doctor and try to reduce the right inguinal hernia and was unsuccessful.? The patient came to the emergency room attempts were made to reduce the hernia under sedation.? Burroughs catheter was placed at that time and the patient had 850 cc of urine drained from that Burroughs catheter.? The patient was admitted to surgery please see surgical note for repair of incarcerated recurrent right inguinal hernia with large per fix like to plug and patch.? The night of the surgery the patient became very confused because he thought he was still at home.? The patient was confused and lethargic the day of surgery.? The patient was also having some urinary retention.? The Burroughs catheter was removed but the patient is still having difficulty urinating.? He has only dribbling small amount and frequently going to the restroom.? The patient was admitted to inpatient services per surgery and the hospitalist group was asked to consult on the date of service 06/09/2022. Review of Systems Review of Systems: All systems reviewed & are unremarkable except as noted in HPI and below Exam Narrative: General: well-nourished, well-appearing 86-year-old female, sitting up in bed, comfortable, NARD Neuro: awake, alert and oriented x4, speech clear, no focal neuro deficits noted HEENMT: normocephalic, atraumatic, EOMI, sclerae anicteric, moist oral mucosa Respiratory: Clear to auscultation bilaterally without crackles, rhonchi or wheezes, nonlabored breathing Cardio: regular rate, regular rhythm with S1-S2 Abdomen: nondistended, normoactive bowel sounds, soft, nontender to palpation, incision dry clean and intact with glue Extremities: no edema, erythema, or tenderness to palpation, DP pulses 2+ bilaterally Skin: no rashes or lesions, warm and dry Psych: appropriate mood and affect, judgment and insight intact she is Objective Data Vital Signs Vital Signs: Vital Signs - 24 hr 06/09/22 16:59 Temperature 97.6 F Pulse Rate 85 Respiratory Rate 16 Blood Pressure 131/54 L Pulse Oximetry 100 Intake/Output Intake/Output: Intake & Output 06/07/22 06/08/22 06/09/22 06/10/22 23:5
[2022-06-10 12:40] LABS: Prostate Specific Antigen 4.8 ng/mL (< OR = 4.0)
--- NOTE | 2022-06-10 13:16 | PM.PNGS ---
Progress Note: A&P Assessment and Plan (1) Incarcerated inguinal hernia: Code(s): K40.30 - Unilateral inguinal hernia, with obstruction, without gangrene, not specified as recurrent Status: Acute Assessment and Plan: Hernia repaired and patient doing well. Home today with Burroughs catheter. (2) Urinary retention: Code(s): R33.9 - Retention of urine, unspecified Status: Acute Assessment and Plan: Urology has seen patient in consultation. Patient will have indwelling Burroughs for a week and removal in their office. 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 Much better. Subjective Subjective Date/Time Seen: 06/10/22 13:16 Post Op day: 2 Patient reports: feels better and other (Less confused, Burroughs had to be replaced) Interval history: No problems with inguinal hernia repair site. Could take tip catheter had to be placed for Burroughs catheter placement last night. Urology has seen the patient and wants him to see them in a week for catheter removal. He would like to go home today. Exam : Male General Exam: No hernia (Incision healing well right inguinal region) and No tenderness Penis: Yes other (Burroughs catheter in place) Objective Data Vital Signs Vital Signs: Vital Signs - 24 hr 06/09/22 16:59 Temperature 36.4 C Pulse Rate 85 Respiratory Rate 16 Blood Pressure 131/54 L Pulse Oximetry 100 Intake/Output Intake/Output: Intake & Output 06/07/22 06/08/22 06/09/22 06/10/22 23:59 23:59 23:59 23:59 Intake Total 1000 1590 720 240 Output Total 2230 1250 1200 Balance 1000 -640 -530 -960 Meds/Results Medications: Active Medications Generic Name Dose Route Start Last Admin Trade Name Freq PRN Reason Stop Dose Admin Acetaminophen 500 mg 06/08/22 15:03 Acetaminophen 500 Mg Tablet PO Q6H PRN Mild Pain (1-3) or Fever Enoxaparin Sodium 30 mg 06/08/22 21:00 06/10/22 09:14 Enoxaparin 30 Mg/0.3 Ml Syringe SUB-Q 30 mg Q12HR LAURIE Administration Famotidine 20 mg 06/08/22 21:00 12/05/22 09:20 Famotidine 20 Mg Tablet PO 20 mg Q12HR LAURIE Administration Fentanyl Citrate 12.5 mcg 06/09/22 09:54 Fentanyl Citrate Inj (*Crx) 100 Mcg/2 Ml Vial IV PUSH Q2H PRN Pain Rated 7-10 Finasteride 5 mg 06/11/22 09:00 Finasteride 5 Mg Tablet PO QAM LAURIE Ibuprofen 600 mg 06/09/22 09:54 Ibuprofen 600 Mg Tablet PO Q6H PRN Moderate Pain (4-6) Lorazepam 0.5 mg 06/07/22 23:34 06/09/22 22:51 Lorazepam Inj (*Crx) 2 Mg/Ml Vial IV PUSH 0.5 mg Q2H PRN Administration Anxiety Polyethylene Glycol 17 gm 06/09/22 09:00 06/10/22 09:15 Polyethylene Glycol 3350 17 Gm Powd.Pack PO 17 gm QAM LAURIE Administration Senna/Docusate Sodium 2 tab 06/08/22 21:00 06/09/22 20:08 Senna/Docusate Sodium Tablet PO 2 tab HS LAURIE Administration Sertraline HCl 25 mg 06/09/22 09:00 06/10/22 09:14 Sertraline Hcl 25 Mg Tablet PO 25 mg DAILY LAURIE Administration Tamsulosin HCl 0.4 mg 06/10/22 09:00 06/10/22 09:14 Tamsulosin Hcl 0.4 Mg Capsule PO 0.4 mg QAM LAURIE Administration Radiology Results: ITS Impressions Abdomen/Pelvis CT 06/07/22 17:00 IMPRESSION: 1. Bilateral inguinal hernias with the right hernia containing fluid. 2: Sclerotic lesion of the left ilium. Cannot exclude metastatic disease. Correlate for history of malignancy. Labs Labs: Laboratory Results - last 24 hr 06/09/22 06/10/22 06/10/22 19:37 05:37 05:39 Sodium 138 Potassium 3.5 Chloride 106 Carbon Dioxide 26 Anion Gap 6 L BUN 9 Creatinine 0.70 Estim Creat Clear Calc 57 Estimated GFR > 60 Glucose 97 Lactic Acid Calcium 8.3 L Magnesium 2.2 Total Bilirubin 0.7 AST 34 ALT 25 Alkaline Phosphatase 68 Total Protein 6.0 L Albumin 3.5
--- NOTE | 2022-06-10 13:25 | PM.DS ---
DS: Admitting Diagnosis Discharge Date 06/10/2022 Admitting Diagnosis Incarcerated right inguinal hernia DS: Discharge Diagnosis Discharge Diagnosis (1) Incarcerated inguinal hernia: Code(s): K40.30 - Unilateral inguinal hernia, with obstruction, without gangrene, not specified as recurrent Status: Acute Assessment and Plan: Repaired, 06/08/2022. Minimal discomfort and doing well. (2) Urinary retention: Code(s): R33.9 - Retention of urine, unspecified Status: Acute Assessment and Plan: Seen in consultation by Fantasma raines with urology group. 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 This is better today and last night. (4) BPH (benign prostatic hyperplasia): Code(s): N40.0 - Benign prostatic hyperplasia without lower urinary tract symptoms Status: Chronic (5) History of elevated PSA: Code(s): Z87.898 - Personal history of other specified conditions Status: Chronic DS: Summary Hospital Course Hospital Course: Patient came to the emergency room on 06/07/2022. He had pain and an incarcerated right inguinal hernia. He received sedation and partial reduction by the emergency room physician. However this was only transient and the hernia recurred and was incarcerated. He was placed in the hospital. That night he was very restless and had urinary retention. Burroughs catheter was placed. On 06/08/2022 the patient went to surgery and had repair of incarcerated right inguinal hernia per Dr. Cao. Patient was observed that day and then on 06/09 his catheter was removed. It had to be replaced again. He was very confused again the night after surgery as he had been the night before. Last night he was much better. He is lucid today. Urology saw the patient and wished to leave the catheter in place and follow-up with them in a week for removal. Patient lives at home he and does not wish to have home health. He is discharged in improved condition. Status at Discharge Functional status at discharge: independent ambulation Overall status at discharge: patient is progressing back to baseline Time Spent with Patient Time attestation: Total time spent providing and/or coordinating discharge services: DS: Data Data Completed and Pending Pending studies at discharge: Pending at discharge 06/08/22 13:09 Surgical [PTH] Routine Labs on day of discharge: Labs from last 24 hours 06/10/22 06/10/22 06/10/22 05:39 05:39 05:39 Sodium 138 Potassium 3.5 Chloride 106 Carbon Dioxide 26 Anion Gap 6 L BUN 9 Creatinine 0.70 Estim Creat Clear Calc 57 Estimated GFR > 60 Glucose 97 Lactic Acid 0.9 Calcium 8.3 L Magnesium 2.2 Total Bilirubin 0.7 AST 34 ALT 25 Alkaline Phosphatase 68 Total Protein 6.0 L Albumin 3.5 Prostate Specific Ag TSH (Reflex) 1.300 Urine Color Urine Appearance Urine pH Ur Specific [place] Urine Protein Urine Glucose (UA) Urine Ketones Ur Blood (Man) Urine Nitrate Urine Bilirubin Urine Urobilinogen Ur Leukocyte Esterase Urine RBC Urine WBC Urine Bacteria Urine Mucus 06/10/22 06/09/22 05:37 19:37 Sodium Potassium Chloride Carbon Dioxide Anion Gap BUN Creatinine Estim Creat Clear Calc Estimated GFR Glucose Lactic Acid Calcium Magnesium Total Bilirubin AST ALT Alkaline Phosphatase Total Protein Albumin Prostate Specific Ag 4.8 H TSH (Reflex) Urine Color Yellow Urine Appearance Clear Urine pH 7.0 Ur Specific [place] 1.010 Urine Protein Negative Urine Glucose (UA) Negative Urine Ketones Negative Ur Blood (Man) 3+ H Urine Nitrate Negative Urine Bilirubin
[2022-06-10 14:47] VITALS: BP 113/56; PULSE 98; RESP 18; TEMP 36.8; O2SAT 99
== END 2022-06-10 15:50 | disposition home health service (06) | DRG 351 ==
LOC: ANHED 15:52 → ANH3MED 20:38
PROVIDERS: Nurse Practitioner; Nurse Practitioner Adult Health; Admitting Provider Surgery; Emergency Provider Emergency Medicine; PCP Family Medicine; Visit Provider Surgery
PROC: 0YU50JZ Supplement Right Inguinal Region with Synthetic Substitute, Open Approach (ICD-10-PCS; principal; 2022-06-08 12:00)
DX: K40.31 Unilateral inguinal hernia, with obstruction, without gangrene, recurrent (principal); F05 Delirium due to known physiological condition; R33.9 Retention of urine, unspecified; Z20.822 Contact with and (suspected) exposure to COVID-19; N40.0 Benign prostatic hyperplasia without lower urinary tract symptoms
CPT/HCPCS: 36415; 74177; 80048; 80053; 81001; 83605; 83735; 84153; 84443; 85025; 85027; 85610; 85730; 88302; 96361; 96374; 96375; 97161; 97165; 99285; A9270; C1781; G0378; J0690; J1170; J1650; J2001; J2060; J2270; J2405; J2704; J3010; J7030; J7120; Q9967; U0003; U0005

== ENCOUNTER 2022-06-11 22:28 | Emergency (ER) | payer MEDICARE, OTHER, SELFPAY ==
--- NOTE | ~2022-06-11 | CT_ITS ---
EXAMINATION: CT abdomen pelvis w con DATE: 06/12/2022 01:13 INDICATION: Abdominal pain and swelling. TECHNIQUE: Computed tomography (CT) of the abdomen and pelvis was performed with 100 cc Omnipaque 350 intravenous contrast. The dose-length product was 280.71 mGy-cm. Automated exposure control and iter ative reconstruction technique were employed. COMPARISON: CT dated 06/07/2022. FINDINGS: Lung bases are unremarkable. Heart size normal. Small hiatal hernia. No significant pleural or pericardial effusion. There are calcified granulomas of the liver and spleen. Status post cholecy stectomy. There is an exophytic left renal cyst measuring 6.2 cm. There are small subcentimeter hypod ensities in the kidneys, too small to characterize. The pancreas, adrenal glands are unremarkable. No nobstructive bowel gas pattern. Status post hernia repair. Patient sent home with catheter and patient accidentally pulled catheter o ut now with blood and Burroughs bag. There are surgical changes of recent right inguinal hernia repair wi th soft tissue edema and gas in the right inguinal location and inguinal canal. Burroughs catheter presen t within the bladder. Prostate gland is enlarged. Bladder wall is mildly thickened, although this cou ld be due to underdistention. Nonobstructive bowel gas pattern. Colonic diverticulosis without divert iculitis. There are degenerative changes of the sacroiliac joints. Small sclerotic lesion of the left ilium, nonspecific. Correlate for history of malignancy. Consider correlation with bone scan. Small fat-containing left inguinal hernia. IMPRESSION: 1. Surgical changes consistent with recent right inguinal hernia repair. Burroughs catheter present in th e bladder which appears mildly thickened which may be due to underdistention or cystitis. 2: Enlarged prostate gland. Reviewed, dictated and finalized at location A. T METAL HELPER IMPRESSION: 1. Surgical changes consistent with recent right inguinal hernia repair. Burroughs catheter present in the bladder which appears mildly thickened which may be due to underdistention or cystitis. 2: Enlarged prostate gland.
--- NOTE | ~2022-06-11 | XR_ITS ---
EXAMINATION: XR chest 1V portable INDICATION: Cough TECHNIQUE: Portable AP chest at 1224 hours COMPARISON: 09/26/2015 FINDINGS: The lungs are free of acute opacities. No pleural effusion or pneumothorax. The heart size is normal. Calcified bilateral hilar lymph nodes are consistent with old granulomatous disease. Heale d right-sided rib fractures are noted. IMPRESSION: 1. No acute cardiopulmonary abnormality. Reviewed, dictated and finalized at location A. SE DRIVER
[2022-06-11 22:37] VITALS: BP 168/74; PULSE 88; RESP 17; TEMP 36.4; O2SAT 100
--- NOTE | 2022-06-12 00:08 | ECG_ITS ---
Measurements Intervals [place] Rate: 81 P: 73 [place]: 176 QRS: 26 QRSD: 79 T: 57 QT: 357 QTc: 416 Interpretive Statements SINUS RHYTHM NO PREVIOUS ECG AVAILABLE FOR COMPARISON Electronically Signed On 06-12-2022 15:01:17 INFORMATION TECHNOLOGY ASSOCIATE by Cristhian Thorne M.D.
--- NOTE | 2022-06-12 00:20 | PC.NURSE ---
Urinary catheter remains in place. Catheter irrigated with 120ml NS until clear and new drainage bag placed at this time.
[2022-06-12 00:30] VITALS: BP 173/75; PULSE 77; RESP 16; O2SAT 100
[2022-06-12 00:34] LABS: Basophils Percent Auto 0.7 % (0.2-1.2); Eosinophils Absolute Auto 0.2 K/mm3 (0-0.3); Eosinophils Percent Auto 2.4 % (0-4.4); Hematocrit 41.9 % (42.0-52.0); Immature Granulocyte Absolute 0.02 K/mm3 (0.00-0.031); Immature Granulocyte Percent A 0.3 % (0-0.5); Lymphocytes Absolute Auto 0.69 K/mm3 (0.9-3.2); Lymphocytes Percent Auto 11.2 % (18.3-44.2); Mean Corpuscular HGB Conc 33.4 g/dl (32-36); Mean Corpuscular Hemoglobin 30.6 pg (26-34); Mean Corpuscular Volume 91.5 fl (80-100); Mean Platelet Volume 10.3 fl (7.4-10.4); Monocytes Absolute Auto 0.7 K/mm3 (0.1-0.6); Monocytes Percent Auto 11.9 % (2.6-8.5); Neutrophils Absolute Auto 4.5 K/mm3 (1.3-6.7); Neutrophils Percent Auto 73.5 % (45.5-73.1); Platelet Count Result 231 k/mm3 (150-375); Red Blood Count 4.58 M/mm3 (4.6-6.20); Red Cell Distribution Width 12.8 % (11.5-14.5); White Blood Count 6.2 K/mm3 (4.5-10.0)
[2022-06-12 00:43] LABS: Alanine Aminotransferase 28 U/L (6-50); Albumin Level 3.5 g/dL (3.5-5.1); Alkaline Phosphatase 75 U/L (38-126); Anion Gap 2 mmol/L (8-16); Aspartate Amino Transferase 31 U/L (17-59); Bilirubin,Total 0.4 mg/dL (0.2-1.3); Blood Urea Nitrogen 11 mg/dL (9-20); Calcium 8.5 mg/dL (8.4-10.2); Carbon Dioxide 28 mmol/L (22-30); Chloride 105 mmol/L (98-107); Estimated Glomerular Filt Rate > 60; Glucose 103 mg/dL (65-110); Lipase 53 U/L (23-300); Magnesium 2.2 mg/dL (1.6-2.3); Potassium 3.7 mmol/L (3.4-5.0); Sodium 135 mmol/L (137-145)
[2022-06-12 00:45] VITALS: BP 161/77; PULSE 78; RESP 16; O2SAT 100
[2022-06-12 00:45] LABS: Partial Thromboplastin Time 30.1 SECONDS (22.3-36.8); Prothrombin Time 12.7 Seconds (11.1-14.7)
[2022-06-12 00:54] LABS: Troponin I < 0.012 ng/mL (0.000-0.034)
[2022-06-12 01:10] LABS: Influenza A QL RT-PCR Negative (Negative); Influenza B QL RT-PCR Negative (Negative); RSV RNA, RT-PCR Negative (Negative); SARS-CoV-2 RNA PCR Negative
--- NOTE | 2022-06-12 01:22 | PC.NURSE ---
200Ml output at this time. Dr. Callahan made aware at this time.
[2022-06-12] MEDS: SODIUM CHLORIDE 0.9% IV 1,000 ML 999 ML IV CONT (01:23)
[2022-06-12 01:39] LABS: Procalcitonin 0.1 ng/mL
[2022-06-12 01:44] LABS: Appearance Urine Slightly Cloudy (Clear); Bilirubin Urine Negative (Negative); Blood Urine 3+ (Negative); Glucose Urine UA Negative (Negative); Ketones Urine Negative (Negative); Leukocyte Esterase Ur Negative LEU/UL (Negative); Nitrate Urine Negative (Negative); Protein Urine 3+ mg/dL (Negative); Specific Grav Ur 1.015 (1.001-1.035); Urobilinogen Urine 0.2 mg/dL (<2.0); pH Urine 8.5 (5.0-9.0)
[2022-06-12 01:45] VITALS: BP 153/72; PULSE 84; RESP 16; O2SAT 100
[2022-06-12 01:47] LABS: Add Urine Microscopic? YES; Color Urine Light Red (Yellow)
[2022-06-12 01:48] LABS: Bacteria Urine Trace /hpf; Calcium Oxalate Crystals Urine Present /hpf; Mucus Urine Rare /lpf; RBC Urine >75 /hpf (0-2)
[2022-06-12 01:55] LABS: Lactic Acid Reflex 0.8 mmol/L (0.7-2.0)
--- NOTE | 2022-06-12 02:00 | ED.GENADULT ---
HPI - General Adult General Chief complaint: Urogenital-Male Stated complaint: blood in tadeo Time Seen by Provider: 06/12/22 00:02 History of Present Illness HPI narrative: Patient is a 86-year-old gentleman who presents emerged department with a chief complaint of blood in the catheter. Patient reports that he was just discharged after having hernia surgery and had a Tadeo catheter in place. The patient apparently was taking a shower and tugged on the Tadeo and subsequently started having bleeding in his catheter. Patient has passed some clots and is also noticed that his penis has been a little bit more swollen since the procedure. The family noticed that intermittently he has been a little confused and reports that they were concerned for him pulling on the catheter again at home. Patient denies vomiting denies fever Related Data Allergies Allergy/AdvReac Type Severity Reaction Status Date / Time No Known Allergies Allergy Unknown Verified 06/07/22 13:42 Review of Systems Review of Systems: A 10 system review of systems was completed on the patient and is negative except for what is stated in the HPI. Nursing and ancillary documentation was reviewed. [facility] Past Medical History Medical History Dementia Neck pain Surgical History Surgical History History of appendectomy S/P hernia repair Social History Social History Social History: The patient lives with his . He has 1 son and 1 daughter. His children are the durable power litigation attorney for healthcare. The patient is retired from the [employer] anti retired from [employer] services. The patient stated that he has never smoked cigarettes. He does not use any alcohol marijuana or illicit drugs. Code status full code Smoking status: Never smoker Tobacco type: cigarettes Second hand tobacco smoke exposure: No Alcohol intake: never Substance use: never Substance use type: does not use Lack of Transportation: No Lack of Food: Never True Current Housing: I Have Housing Concerned About Future Housing: No Difficulty Paying Gas/Electric Bills: No Difficulty Paying for Meds: No Currently Unemployed: No Education: High School Diploma/GED Difficulty w/ Childcare or Family Care: No Gender identity (if verbalized by the patient): Male Spiritual care concerns: No Agree to blood products: Yes Exam Narrative: GENERAL: Well-appearing, well-nourished, and in no acute distress. HEAD: Normocephalic, atraumatic. EYES: PERRLA and EOMI. ENT: Nares clear, no rhinorrhea or epistaxis. Mucous membranes moist. NECK: Supple. CHEST: Clear to auscultation. No respiratory distress. HEART: Regular rate and rhythm. No murmur heard. Normal peripheral pulses. ABDOMEN: Soft, nontender, nondistended, normal active bowel sounds. There is slight swelling in the right inguinal region where the incisions for the hernia repair are there is no drainage from the wounds : There is a Tadeo catheter in place there is bloody urine that has drained and the penis is somewhat edematous. EXTREMITIES: Normal range of motion. No edema. SKIN: Warm, dry, no rash. NEURO: No focal deficits. Alert and oriented x3. PSYCH: Normal mood and affect. Course Vital Signs Vital signs: Vital Signs Temperature 36.4 C 06/11/22 22:37 Pulse Rate 88 06/11/22 22:37 Respiratory Rate 17 06/11/22 22:37 Blood Pressure 168/74 H 06/11/22 22:37 Pulse Oximetry 100 06/11/22 22:37 Oxygen Delivery Room Air 06/11/22 22:37 Temperature 37.1 C 06/12/22 02:15 Pulse Rate 85 06/12/22 02:15 Respiratory Rate 16 06/12/22 02:15 Blood Pressure 157/83 H 06/12/22 02:15 Pulse Oximetry 100 06/12/22 02:15 Oxygen Delivery Room Air 06/11/22 22:37 Medical Dec[facility]
[2022-06-12 02:15] VITALS: BP 157/83; PULSE 85; RESP 16; TEMP 37.1; O2SAT 100
[2022-06-12] MEDS: CEPHALEXIN 500 MG CAPSULE PO (02:45)
== END 2022-06-12 03:20 | disposition home or self-care (01) ==
PROVIDERS: Emergency Medicine; Emergency Provider Emergency Medicine; PCP Family Medicine
DX: N39.0 Urinary tract infection, site not specified (principal); R31.9 Hematuria, unspecified; Z20.822 Contact with and (suspected) exposure to COVID-19; F03.90 Unspecified dementia, unspecified severity, without behavioral disturbance, psychotic disturbance, mood disturbance, and anxiety
CPT/HCPCS: 36415; 71045; 74177; 80053; 81001; 83605; 83690; 83735; 84145; 84484; 85025; 85610; 85730; 87086; 87637; 93005; 96360; 99284; A9270; J7030; Q9967

== ENCOUNTER 2022-12-24 14:59 | Emergency (ER) | payer MEDICARE, OTHER, SELFPAY ==
--- NOTE | ~2022-12-24 | CT_ITS ---
EXAMINATION: CT brain wo con DATE: 12/24/2022 18:17 INDICATION: Status post recent fall. Head injury. TECHNIQUE: Computed tomography (CT) of the head was performed without intravenous contrast. The dose- length product was 605.33 mGy-cm. Automated exposure control and iterative reconstruction technique w ere employed. COMPARISON: CT dated 03/21/2022 FINDINGS: Mild generalized atrophy. There are scattered mild periventricular and subcortical white ma tter changes, most likely related to small vessel ischemic disease (microangiopathy). No ventriculome carmita or midline shift. Basilar cisterns are patent. Paranasal sinuses and mastoids are pneumatized. N o depressed skull fractures. There are changes of lens replacement surgery. There is an age-indetermi diony right nasal fracture. There is intracranial atherosclerosis. IMPRESSION: 1. No acute intracranial abnormality. 2: Chronic age-related findings. Reviewed, dictated and finalized at location L.
[2022-12-24 15:21] VITALS: BP 143/69; PULSE 85; RESP 16; TEMP 36.6; O2SAT 100
--- NOTE | 2022-12-24 17:35 | ED.GENADULT ---
HPI - General Adult General Chief complaint: Weakness <Tyson Broderick PA-C - Last Filed: 12/24/22 23:42> Stated complaint: fatigue/unable to sleep <KURT Canseco Last Filed: 12/24/22 23:42> Time Seen by Provider: 12/24/22 16:55 <KURT Canseco Last Filed: 12/24/22 23:42> Source: patient <KURT Canseco Last Filed: 12/24/22 23:42> Mode of arrival: ambulatory <KURT Canseco Last Filed: 12/24/22 23:42> Limitations: no limitations <KRUT Canseco Last Filed: 12/24/22 23:42> History of Present Illness HPI narrative: This is an 87-year-old male with PMH of dementia, BPH who presents to the ED with chief complaint of malaise going on for several weeks. Patient states that today was worse so he came to the ER with his . Patient states it feels like I have not slept in a really long time. Patient states that he has had a little bit of a runny nose today but otherwise has been feeling fine. States he is asymptomatic. He does report a fall out of bed 2 nights ago in which she hit his head on the floor. Denies LOC or any headaches. Denies any neurologic symptoms, urinary symptoms, abdominal pain, chest pain, shortness of breath, cough, fevers, chills. His is here and expresses concern about patient being more tired. She explains that they have seen a primary care doctor, Dr. Hilliard, who is concerned about dementia. states that he will get up to do small activities like eating but then go right back to bed. She states he is slowly becoming more forgetful. She states that she came today because her family would be upset if she did not get him checked out. <KURT Canseco Last Filed: 12/24/22 23:42> Related Data Allergies/adverse reactions: Allergies Allergy/AdvReac Type Severity Reaction Status Date / Time No Known Allergies Allergy Unknown Verified 12/30/22 10:04 <KURT Canseco Last Filed: 12/24/22 23:42> [facility] Past Medical History Medical History: Medical History Dementia Neck pain <Tyson Broderick PA-C - Last Filed: 12/24/22 23:42> Surgical History Surgical History: Surgical History History of appendectomy S/P hernia repair <Tyson Broderick PA-C - Last Filed: 12/24/22 23:42> Social History Social History: Social History Social History: The patient lives with his . He has 1 son and 1 daughter. His children are the durable power insurance defense attorney for healthcare. The patient is retired from the [employer] anti retired from [employer] services. The patient stated that he has never smoked cigarettes. He does not use any alcohol marijuana or illicit drugs. Code status full code Smoking status: Never smoker Tobacco type: cigarettes Second hand tobacco smoke exposure: No Alcohol intake: never Substance use: never Substance use type: does not use Lack of Transportation: No Lack of Food: Never True Current Housing: I Have Housing Concerned About Future Housing: No Difficulty Paying Gas/Electric Bills: No Difficulty Paying for Meds: No Currently Unemployed: No Education: High School Diploma/GED Difficulty w/ Childcare or Family Care: No Living arrangements: with family Occupation/Education: retired Gender identity (if verbalized by the patient): Male Spiritual care concerns: No Agree to blood products: Yes <Tyson Broderick PA-C - Last Filed: 12/24/22 23:42> Exam Narrative: GENERAL: Well-appearing, well-nourished, and in no acute distress. HEAD: Normocephalic, atraumatic. EYES: PERRLA and EOMI. ENT: Nares clear, no rhinorrhea or epistaxis. Mucous membranes moist. Oropharynx without tonsillar hypertrophy exudate or other lesions. NECK: Supple. No adenopathy or masses.
[2022-12-24 18:12] LABS: Basophils Absolute Auto 0.1 K/mm3 (0.0-0.1); Basophils Percent Auto 1.3 % (0.2-1.2); Eosinophils Absolute Auto 0.1 K/mm3 (0-0.3); Eosinophils Percent Auto 1.4 % (0-4.4); Hematocrit 52.8 % (42.0-52.0); Hemoglobin 17.6 g/dL (14.0-18.0); Immature Granulocyte Absolute 0.01 K/mm3 (0.00-0.031); Immature Granulocyte Percent A 0.2 % (0-0.5); Lymphocytes Percent Auto 22.1 % (18.3-44.2); Mean Corpuscular HGB Conc 33.3 g/dl (32-36); Mean Corpuscular Hemoglobin 30.8 pg (26-34); Mean Corpuscular Volume 92.5 fl (80-100); Monocytes Absolute Auto 0.7 K/mm3 (0.1-0.6); Monocytes Percent Auto 11.2 % (2.6-8.5); Neutrophils Absolute Auto 4.1 K/mm3 (1.3-6.7); Neutrophils Percent Auto 63.8 % (45.5-73.1); Platelet Count Result 272 k/mm3 (150-375); Red Blood Count 5.71 M/mm3 (4.6-6.20); Red Cell Distribution Width 12.5 % (11.5-14.5); White Blood Count 6.3 K/mm3 (4.5-10.0)
[2022-12-24 18:23] LABS: Influenza A QL RT-PCR Negative (Negative); Influenza B QL RT-PCR Negative (Negative); RSV RNA, RT-PCR Negative (Negative); SARS-CoV-2 RNA PCR Negative (Negative)
[2022-12-24 18:25] LABS: INR 0.9
[2022-12-24 18:26] LABS: Alanine Aminotransferase 25 U/L (6-50); Albumin Level 4.6 g/dL (3.5-5.1); Alkaline Phosphatase 73 U/L (38-126); Anion Gap 8 mmol/L (8-16); Aspartate Amino Transferase 26 U/L (17-59); Bilirubin,Total 0.9 mg/dL (0.2-1.3); Blood Urea Nitrogen 14 mg/dL (9-20); Calcium 9.5 mg/dL (8.4-10.2); Carbon Dioxide 30 mmol/L (22-30); Chloride 101 mmol/L (98-107); Estimated CRCL calculation 45 ml/min; Estimated Glomerular Filt Rate > 60; Glucose 122 mg/dL (65-110); Potassium 4.1 mmol/L (3.4-5.0); Sodium 139 mmol/L (137-145)
[2022-12-24 18:35] LABS: Appearance Urine Clear (Clear); Bacteria Urine None Seen /hpf; Bilirubin Urine Negative (Negative); Blood Urine Negative (Negative); Color Urine Dark Yellow (Yellow); Glucose Urine UA Negative (Negative); Hyaline Casts Urine Present /lpf; Ketones Urine 3+ mg/dL (Negative); Leukocyte Esterase Ur Trace LEU/UL (Negative); Nitrate Urine Negative (Negative); Non Pathogenic Casts 0-2; Protein Urine Negative (Negative); RBC Urine 0-2 /hpf (0-2); Specific Grav Ur 1.021 (1.001-1.035); Squamous Epithelial Cell Urine None seen /hpf (Few); WBC Urine 0-5 /hpf
[2022-12-24 18:38] LABS: Add Urine Microscopic? YES
[2022-12-24 19:27] VITALS: BP 115/69; PULSE 67; RESP 22; O2SAT 100
== END 2022-12-24 19:38 | disposition home or self-care (01) ==
PROVIDERS: Emergency Provider Physician Assistant; PCP Family Medicine
DX: R53.83 Other fatigue (principal); F03.90 Unspecified dementia, unspecified severity, without behavioral disturbance, psychotic disturbance, mood disturbance, and anxiety; N40.0 Benign prostatic hyperplasia without lower urinary tract symptoms; Z20.822 Contact with and (suspected) exposure to COVID-19
CPT/HCPCS: 36415; 70450; 80053; 81001; 85025; 85610; 87637; 99284

== ENCOUNTER 2022-12-26 11:05 | Emergency (ER) | payer MEDICARE, OTHER, SELFPAY ==
[2022-12-26 11:20] VITALS: BP 129/84; PULSE 92; RESP 18; TEMP 36.6; O2SAT 99
[2022-12-26 13:12] LABS: Basophils Absolute Auto 0.1 K/mm3 (0.0-0.1); Basophils Percent Auto 1.3 % (0.2-1.2); Eosinophils Absolute Auto 0.1 K/mm3 (0-0.3); Eosinophils Percent Auto 1.9 % (0-4.4); Hematocrit 49.7 % (42.0-52.0); Hemoglobin 16.2 g/dL (14.0-18.0); Immature Granulocyte Absolute 0.01 K/mm3 (0.00-0.031); Immature Granulocyte Percent A 0.2 % (0-0.5); Lymphocytes Absolute Auto 0.94 K/mm3 (0.9-3.2); Mean Corpuscular HGB Conc 32.6 g/dl (32-36); Mean Corpuscular Hemoglobin 30.5 pg (26-34); Mean Corpuscular Volume 93.6 fl (80-100); Mean Platelet Volume 10.1 fl (7.4-10.4); Monocytes Absolute Auto 0.6 K/mm3 (0.1-0.6); Monocytes Percent Auto 12.3 % (2.6-8.5); Neutrophils Percent Auto 64.3 % (45.5-73.1); Platelet Count Result 237 k/mm3 (150-375); Red Blood Count 5.31 M/mm3 (4.6-6.20); Red Cell Distribution Width 12.5 % (11.5-14.5); White Blood Count 4.7 K/mm3 (4.5-10.0)
[2022-12-26 13:23] LABS: Prothrombin Time 13.8 Seconds (11.1-14.7)
[2022-12-26 13:24] LABS: Partial Thromboplastin Time 29.4 SECONDS (22.3-36.8)
[2022-12-26 13:27] LABS: Alanine Aminotransferase 22 U/L (6-50); Albumin Level 4.2 g/dL (3.5-5.1); Alkaline Phosphatase 61 U/L (38-126); Anion Gap 5 mmol/L (8-16); Aspartate Amino Transferase 24 U/L (17-59); Bilirubin,Total 0.7 mg/dL (0.2-1.3); Blood Urea Nitrogen 14 mg/dL (9-20); Calcium 9.2 mg/dL (8.4-10.2); Carbon Dioxide 32 mmol/L (22-30); Chloride 103 mmol/L (98-107); Estimated CRCL calculation 43 ml/min; Estimated Glomerular Filt Rate > 60; Glucose 98 mg/dL (65-110); Sodium 140 mmol/L (137-145)
[2022-12-26 13:35] VITALS: O2SAT 100
[2022-12-26 13:45] VITALS: O2SAT 100
[2022-12-26 15:10] VITALS: BP 156/69; PULSE 68
--- NOTE | 2022-12-26 15:34 | ED.GENADULT ---
HPI - General Adult General Chief complaint: GI Bleed Stated complaint: rectal bleeding Time Seen by Provider: 12/26/22 13:28 History of Present Illness HPI narrative: Patient is an 87-year-old male who presents ER with concerns of rectal bleeding. This morning he woke up and's on the toilet to have a bowel movement and sat there for a while and then started having blood come from his bottom. He did take a picture of the blood which is bright red. Reports every day he sits down and does a crossword puzzle while having a bowel movement and he usually gets out of small caliber stool. Denies abdominal pain or bloating or cramping. Has not been diagnosed with constipation issues in the past. He is concerned he may have hemorrhoids. He is not on any blood thinners. Related Data Allergies Allergy/AdvReac Type Severity Reaction Status Date / Time No Known Allergies Allergy Unknown Verified 10/11/22 11:04 Review of Systems Review of Systems: All systems reviewed & are unremarkable except as noted in HPI and below Constitutional: Constitutional: Denies chills, Reports fatigue and Denies fever(s) ENT: Denies nasal congestion and Denies sore throat Gastrointestinal: Gastrointestinal: Denies abdominal pain, Denies diarrhea, Denies nausea and Denies vomiting Comments: Positive rectal bleeding Genitourinary: Genitourinary: Denies dysuria and Denies urinary frequency Neurologic: Denies dizziness and Denies syncope [facility] Past Medical History Medical History Dementia Neck pain Surgical History Surgical History History of appendectomy S/P hernia repair Social History Social History Social History: The patient lives with his . He has 1 son and 1 daughter. His children are the durable power computer lab assistant for healthcare. The patient is retired from the [employer] retired from [employer] services. The patient stated that he has never smoked cigarettes. He does not use any alcohol marijuana or illicit drugs. Code status full code Smoking status: Never smoker Tobacco type: cigarettes Second hand tobacco smoke exposure: No Alcohol intake: never Substance use: never Substance use type: does not use Lack of Transportation: No Lack of Food: Never True Current Housing: I Have Housing Concerned About Future Housing: No Difficulty Paying Gas/Electric Bills: No Difficulty Paying for Meds: No Currently Unemployed: No Education: High School Diploma/GED Difficulty w/ Childcare or Family Care: No Living arrangements: with family Occupation/Education: retired Gender identity (if verbalized by the patient): Male Spiritual care concerns: No Agree to blood products: Yes Exam Narrative: GENERAL: Frail-appearing, well-nourished, and in no acute distress. HEAD: Normocephalic, atraumatic. ENT: Mucous membranes moist. CHEST: Clear to auscultation. No respiratory distress. HEART: Regular rate and rhythm. Normal peripheral pulses. ABDOMEN: Soft, nontender, nondistended. Rectal: External rectum without external hemorrhoids. There is central pink mucosa consistent with a small rectal prolapse that is easily reduced. No gross blood after digital exam. EXTREMITIES: Normal range of motion. No edema. SKIN: Warm, dry, no rash. NEURO: Alert and oriented x3. PSYCH: Normal mood and affect. Course Course Emergency Course: Patient and educated in regards of rectal prolapse. Recommend stool softeners and avoiding prolonged toilet times. Also recommend follow-up with general surgery and PCP. No active bleeding on rectal exam. No obvious external hemorrhoids that were bleeding nor internal hemorrhoids. It is suspected that patient could have internal hemorrhoid given his straining and the amount of bl
[2022-12-26 15:50] VITALS: BP 138/65; PULSE 70; RESP 16; O2SAT 100
== END 2022-12-26 15:52 | disposition home or self-care (01) ==
PROVIDERS: Emergency Provider Emergency Medicine; PCP Family Medicine
DX: K62.3 Rectal prolapse (principal); K62.5 Hemorrhage of anus and rectum; F03.90 Unspecified dementia, unspecified severity, without behavioral disturbance, psychotic disturbance, mood disturbance, and anxiety
CPT/HCPCS: 36415; 80053; 85025; 85610; 85730; 86850; 86900; 86901; 99283

== ENCOUNTER 2023-09-21 09:17 | Emergency (ER) | payer MEDICARE, OTHER, SELFPAY ==
[2023-09-21 09:33] VITALS: BP 148/64; PULSE 88; RESP 14; TEMP 37.2; O2SAT 98
--- NOTE | 2023-09-21 10:03 | ED.WOUNDLAC ---
HPI - Wound/Laceration General Chief Complaint: Fall Stated Complaint: Fall Time Seen by Provider: 09/21/23 09:40 Source: patient, family () and RN notes reviewed Mode of arrival: ambulatory Limitations: no limitations History of Present Illness HPI narrative: Patient presents today with skin tears to bilateral arms. He got up in the middle of the night around 2:00 a.m. to go to the restroom, did not turn the light on, and fell against a cabinet in his bedroom, causing skin tears. dressed wounds with gauze and CHANDAN. Denies falling or head injury. Related Data Allergies Allergy/AdvReac Type Severity Reaction Status Date / Time No Known Allergies Allergy Unknown Verified 07/30/23 14:32 Review of Systems Review of Systems: CONSTITUTIONAL: Denies body aches, fever, chills, or sweats. EYES: Denies visual changes, redness, or discharge. ENT: Denies rhinorrhea, congestion, sore throat, or otalgia. CARDIOVASCULAR: Denies chest pain, palpitations, or edema. RESPIRATORY: Denies cough or dyspnea. GASTROINTESTINAL: Denies abdominal pain, nausea, vomiting, or diarrhea. GENITOURINARY: Denies dysuria or hematuria. SKIN: + skin tears to bilateral arms MUSCULOSKELETAL: Denies back pain, joint pain, or myalgia. NEUROLOGIC: Denies headache, numbness, tingling, or weakness. PSYCH: Denies depression or anxiety. [facility] Past Medical History Medical History Dementia Incarcerated inguinal hernia Neck pain Surgical History Surgical History History of appendectomy S/P hernia repair Social History Social History Social History: The patient lives with his . He has 1 son and 1 daughter. His children are the durable power document review attorney for healthcare. The patient is retired from the [employer] retired from [employer] services. The patient stated that he has never smoked cigarettes. He does not use any alcohol marijuana or illicit drugs. Code status full code Smoking status: Never smoker Tobacco type: cigarettes Second hand tobacco smoke exposure: No Alcohol intake: never Substance use: never Substance use type: does not use Lack of Transportation: No Lack of Food: Never True Current Housing: I Have Housing Concerned About Future Housing: No Difficulty Paying Gas/Electric Bills: No Difficulty Paying for Meds: No Currently Unemployed: No Education: High School Diploma/GED Difficulty w/ Childcare or Family Care: No Living arrangements: with family Occupation/Education: retired Gender identity (if verbalized by the patient): Male Spiritual care concerns: No Agree to blood products: Yes Comments At time of signature, I have reviewed and agree with nursing past medical, surgical, social and family history unless otherwise noted. Please see nursing chart for further information. There is no relevant family history pertinent to the presenting complaint Exam Narrative: GENERAL: Well-appearing, well-nourished, and in no acute distress. HEAD: Normocephalic, atraumatic. EYES: EOMI. No redness or drainage. Conjunctivae normal. ENT: Mucous membranes pink and moist. NECK: Normal AROM. CHEST: No respiratory distress. EXTREMITIES: Right arm: Superficial skin tear measuring 4x3cm. #2 measuring 1.5x1cm. Left arm: Superficial skin tear 4x1cm to forearm. No active bleeding. Full AROM of the arms. No surrounding ecchymosis or edema. Patient denies any additional injuries. SKIN: Warm, dry, no rash. Capillary refill normal. Normal skin turgor. NEURO: No focal deficits. Alert and oriented x3. Gait steady. PSYCH: Normal affect. No signs of depression or anxiety. Course Course Level of Care: Express Care Visit Vital Signs Vital signs: Vital Signs Temperature 98.9 F
[2023-09-21] MEDS: TETANUS/DIPHTHERIA TOXOIDS ADSORB 0.5 ML VIAL (*BKC) IM (10:18)
== END 2023-09-21 10:30 | disposition home or self-care (01) ==
PROVIDERS: Emergency Provider Nurse Practitioner; PCP Family Medicine
DX: S41.111A Laceration without foreign body of right upper arm, initial encounter (principal); S51.811A Laceration without foreign body of right forearm, initial encounter; S51.812A Laceration without foreign body of left forearm, initial encounter; W19.XXXA Unspecified fall, initial encounter; Z23 Encounter for immunization; F03.90 Unspecified dementia, unspecified severity, without behavioral disturbance, psychotic disturbance, mood disturbance, and anxiety
CPT/HCPCS: 12004; 90471; 90714; 99212; G0463

== ENCOUNTER 2023-10-09 15:29 | Emergency (ER) | payer MEDICARE, OTHER, SELFPAY ==
[2023-10-09 15:34] VITALS: BP 165/72; PULSE 94; RESP 18; TEMP 36.4; O2SAT 99
[2023-10-09 15:52] VITALS: BP 131/69; PULSE 80
[2023-10-09 15:53] VITALS: BP 127/76; PULSE 86
[2023-10-09 15:54] VITALS: BP 104/63; PULSE 95
[2023-10-09 16:00] LABS: Basophils Absolute Auto 0.1 K/mm3 (0.0-0.1); Basophils Percent Auto 0.9 % (0.2-1.2); Eosinophils Absolute Auto 0.2 K/mm3 (0-0.3); Eosinophils Percent Auto 2.7 % (0-4.4); Hematocrit 49.9 % (42.0-52.0); Hemoglobin 16.5 g/dL (14.0-18.0); Immature Granulocyte Absolute 0.03 K/mm3 (0.00-0.031); Immature Granulocyte Percent A 0.4 % (0-0.5); Lymphocytes Absolute Auto 1.26 K/mm3 (0.9-3.2); Mean Corpuscular HGB Conc 33.1 g/dl (32-36); Mean Corpuscular Hemoglobin 29.9 pg (26-34); Mean Corpuscular Volume 90.6 fl (80-100); Mean Platelet Volume 9.9 fl (7.4-10.4); Monocytes Absolute Auto 0.8 K/mm3 (0.1-0.6); Monocytes Percent Auto 10.8 % (2.6-8.5); Neutrophils Absolute Auto 5.1 K/mm3 (1.3-6.7); Neutrophils Percent Auto 68.2 % (45.5-73.1); Platelet Count Result 273 k/mm3 (150-375); Red Blood Count 5.51 M/mm3 (4.6-6.20); Red Cell Distribution Width 12.6 % (11.5-14.5); White Blood Count 7.4 K/mm3 (4.5-10.0)
[2023-10-09 16:08] LABS: Alanine Aminotransferase 24 U/L (6-50); Albumin Level 4.1 g/dL (3.5-5.1); Alkaline Phosphatase 70 U/L (38-126); Anion Gap 6 mmol/L (4-12); Aspartate Amino Transferase 28 U/L (17-59); Bilirubin,Total 0.6 mg/dL (0.2-1.3); Blood Urea Nitrogen 11 mg/dL (9-20); Calcium 9.5 mg/dL (8.4-10.2); Carbon Dioxide 26 mmol/L (22-30); Chloride 104 mmol/L (98-107); Estimated CRCL calculation 50 ml/min; Estimated Glomerular Filt Rate > 60; Glucose 99 mg/dL (65-110); Potassium 4.3 mmol/L (3.4-5.0); Sodium 136 mmol/L (137-145)
[2023-10-09 16:10] LABS: Prothrombin Time 13.2 Seconds (11.1-14.7)
[2023-10-09 16:11] LABS: Partial Thromboplastin Time 30.2 Seconds (22.3-36.8)
--- NOTE | 2023-10-09 17:22 | ED.GIBLEED ---
HPI - GI Bleed General Chief complaint: GI Bleed Stated complaint: bloody stools Time Seen by Provider: 10/09/23 16:01 History of Present Illness HPI Narrative: Patient is an 88-year-old male who presents ER with concerns for bleeding from his rectum. Reports over last couple days when he wipes his bottom there is blood on the tissue paper. There is no blood inside the stool or the toilet. He has history of rectal prolapse. He is unsure if it is out. He has no pain. No loss of consciousness. He does not take blood thinners. Related Data Allergies Allergy/AdvReac Type Severity Reaction Status Date / Time No Known Allergies Allergy Unknown Verified 10/09/23 15:57 Review of Systems Constitutional: Constitutional: Reports no additional constitutional complaints Gastrointestinal: Gastrointestinal: Reports abdominal pain, Denies diarrhea, Denies nausea and Denies vomiting Comments: Blood with wiping Genitourinary: Genitourinary: Reports no additional male genitourinary complaints [facility] Past Medical History Medical History Dementia Incarcerated inguinal hernia Neck pain Surgical History Surgical History History of appendectomy S/P hernia repair Social History Social History Social History: The patient lives with his . He has 1 son and 1 daughter. His children are the durable power family law attorney for healthcare. The patient is retired from the [employer] anti retired from [employer] services. The patient stated that he has never smoked cigarettes. He does not use any alcohol marijuana or illicit drugs. Code status full code Smoking status: Never smoker Tobacco type: cigarettes Second hand tobacco smoke exposure: No Alcohol intake: never Substance use: never Substance use type: does not use Lack of Transportation: No Lack of Food: Never True Current Housing: I Have Housing Concerned About Future Housing: No Difficulty Paying Gas/Electric Bills: No Difficulty Paying for Meds: No Currently Unemployed: No Education: High School Diploma/GED Difficulty w/ Childcare or Family Care: No Living arrangements: with family Occupation/Education: retired Gender identity (if verbalized by the patient): Male Spiritual care concerns: No Agree to blood products: Yes Exam Narrative: GENERAL: Well-appearing, well-nourished, and in no acute distress. HEAD: Normocephalic, atraumatic. CHEST: Clear to auscultation. No respiratory distress. HEART: Regular rate and rhythm. Normal peripheral pulses. very mild rectal prolapse that is easily reducible. Non thrombosed external hemorrhoids present. ABDOMEN: Soft, nontender, nondistended. EXTREMITIES: Normal range of motion. No edema. SKIN: Warm, dry, no rash. NEURO: Alert and oriented x3. PSYCH: Normal mood and affect. Course Course Emergency Course: Discussed short intervals bowel movements. Labs normal. Discharge home. Vital Signs Vital signs: Vital Signs Temperature 97.6 F 10/09/23 15:34 Pulse Rate 94 10/09/23 15:34 Respiratory Rate 18 10/09/23 15:34 Blood Pressure 165/72 H 10/09/23 15:34 Pulse Oximetry 99 10/09/23 15:34 Oxygen Delivery Room Air 10/09/23 15:34 Temperature 97.6 F 10/09/23 15:34 Pulse Rate 95 10/09/23 15:54 Respiratory Rate 18 10/09/23 15:34 Blood Pressure 104/63 10/09/23 15:54 Pulse Oximetry 99 10/09/23 15:34 Oxygen Delivery Room Air 10/09/23 15:34 MDM - GI Bleed Lab Data 10/09/23 15:51 10/09/23 15:51 Labs: Lab Results 10/09/23 Range/Units 15:51 WBC 7.4 (4.5-10.0) K/mm3 RBC 5.51 (4.6-6.20) M/mm3 Hgb 16.5 (14.0-18.0) g/dL Hct 49.9 (42.0-52.0) % MCV 90.6 (80-100) fl MCH 29.9 (26-34) pg MCHC 3
[2023-10-09 17:25] VITALS: BP 153/84; PULSE 96; RESP 18; O2SAT 99
== END 2023-10-09 17:35 | disposition home or self-care (01) ==
PROVIDERS: Emergency Provider Emergency Medicine; PCP Family Medicine
DX: K62.3 Rectal prolapse (principal); F03.90 Unspecified dementia, unspecified severity, without behavioral disturbance, psychotic disturbance, mood disturbance, and anxiety
CPT/HCPCS: 36415; 80053; 85025; 85610; 85730; 86850; 86900; 86901; 99283

== ENCOUNTER 2024-07-15 15:04 | Inpatient (IN) | payer MEDICARE, OTHER, SELFPAY ==
[2024-07-15] VITALS (13 sets, daily range): BP systolic 102–175; BP diastolic 72–85; PULSE 79–86; RESP 16–26; TEMP 36.2–36.6; O2SAT 97–100; BMI 21.7
--- NOTE | ~2024-07-15 | XR_ITS ---
EXAMINATION: XR femur LT min 2V DATE: 07/15/2024 16:34 INDICATION: Left leg pain. Injury. TECHNIQUE: 2 views of the left femur on 4 radiograph were obtained. COMPARISON: None. FINDINGS: There is a comminuted intertrochanteric fracture of proximal left femur. The main distal fr acture fragment demonstrates 22 degrees posterior angulation. There is mild left hip and knee osteoar thritis. IMPRESSION: 1. Comminuted intertrochanteric fracture of proximal left femur. Reviewed, dictated and finalized at location A. UTERIZED MILL MILL RECORDER
--- NOTE | ~2024-07-15 | CT_ITS ---
EXAMINATION: CT brain wo con DATE: 07/15/2024 16:13 INDICATION: trauma . TECHNIQUE: Computed tomography (CT) of the head was performed without intravenous contrast. The mA wa s adjusted according to patient size. Iterative reconstruction technique was employed. The dose-lengt h product was 681.00 mGy-cm. COMPARISON: 12/24/2022. FINDINGS: No acute intracranial hemorrhage or extra-axial fluid collection. No hydrocephalus, mass, or herniation. No acute ischemic infarct. Unremarkable dural venous sinus attenuation. No acute osseous abnormality. Left inferior maxillary mucosal thickening aerated spaces are clear. Moderate atrophy and chronic white matter change. Atherosclerotic intracranial calcification. Bilater al lens replacements. IMPRESSION: No acute intracranial process. Reviewed, dictated and finalized at location K. ET INSTALLATION SPECIALIST
--- NOTE | ~2024-07-15 | CT_ITS ---
History: Trauma PROCEDURE: CT lumbar spine without intravenous contrast. COMPARISON: Reference is made to a CT examination of the abdomen and pelvis dated 06/12/2022 TECHNIQUE: Multiple contiguous axial images of the lumbar spine were performed without the administration of int ravenous contrast. DLP: 543 mGy-cm FINDINGS: Preservation of the normal lordotic curvature of the lumbar spine. No acute compression fracture is appreciated. A 10 mm bone island is identified within the ischium, to the left of midline. Degenerative disease is identified, with osteophyte formation, disc space narrowing, endplate changes and facet arthropathy. Bulky calcifications of the abdominal aorta are present, without aneurysmal dilatation. Impression: Degenerative disease, without acute compression fracture, as detailed above. Reviewed, dictated and finalized at location A. OL HEALTH ASSISTANT Impression: Degenerative disease, without acute compression fracture, as detailed above.
--- NOTE | ~2024-07-15 | XR_ITS ---
EXAMINATION: XR surgery orthopedic DATE: 07/16/2024 11:30 RN CORONARY CARE UNIT INDICATION: LEFT HIP FX.; ORIF . TECHNIQUE: 4 fluoroscopic images of the left hip were obtained during ORIF left hip fracture, perform ed by Blair Conteh M.D.. I was not present during the procedure. Fluoroscopy exposure time was 58. 5 seconds. Air Kerma 5.6194 mGy. DAP 1.1140 mGym2. COMPARISON: 07/15/2024. FINDINGS/IMPRESSION: Fluoroscopic documentation of ORIF left hip fracture. Please refer to the operative note for complete procedural details . Reviewed, dictated and finalized at location K. CORONARY CARE UNIT
--- NOTE | ~2024-07-15 | XR_ITS ---
EXAMINATION: XR hip LT 2V w AP pelvis DATE: 07/15/2024 16:34 INDICATION: Left hip pain. TECHNIQUE: An anteroposterior view of the pelvis and 2 views of left hip were obtained. COMPARISON: None. FINDINGS: There is a comminuted intertrochanteric fracture of proximal left femur. The main distal fr acture fragment demonstrates 22 degrees posterior angulation. There is mild osteoarthritis of the hip s. There is severe lower lumbar spondylosis. IMPRESSION: 1. Comminuted intertrochanteric fracture of proximal left femur. 2. Mild osteoarthritis of the hips. Reviewed, dictated and finalized at location A. BOARD MECHANIC
--- NOTE | ~2024-07-15 | CT_ITS ---
EXAMINATION: CT cervical spine wo con DATE: 07/15/2024 16:13 INDICATION: Neck injury. TECHNIQUE: Computed tomography (CT) of the cervical spine was performed without intravenous contrast. Automated exposure control and iterative reconstruction technique were employed. The dose-length pro duct was 189.37 mGy-cm. COMPARISON: None FINDINGS: There is 2 mm anterolisthesis of C4 on C5. There is 3 degrees levocurvature of cervical spi ne. Vertebral body heights are normal. There is mildly decreased disc height at C3-C4 and C4-C5 and s everely decreased disc height at C5-C6. The following disc levels are specifically discussed: C2-C3: There is mild right uncovertebral joint osteoarthritis. There is severe bilateral facet joint osteoarthritis. There is mild right neural foraminal stenosis. There is no central canal stenosis. C3-C4: There is severe bilateral uncovertebral joint osteoarthritis. There is severe bilateral facet joint osteoarthritis. There is mild bilateral neural foraminal stenosis. There is mild central canal stenosis. C4-C5: There is mild bilateral uncovertebral joint osteoarthritis. There is severe bilateral facet joe int osteoarthritis. There is mild bilateral neural foraminal stenosis. There is mild central canal st enosis. C5-C6: There is moderate and severe left uncovertebral joint osteoarthritis. There is severe bilatera l facet joint osteoarthritis. There is mild bilateral neural foraminal stenosis. There is mild centra l canal stenosis. C6-C7: There is mild bilateral uncovertebral joint osteoarthritis. There is severe bilateral facet joe int osteoarthritis. There is mild bilateral neural foraminal stenosis. There is no central canal sten osis. C7-T1: There is no uncovertebral joint osteoarthritis. There is severe right and moderate left facet joint osteoarthritis. There is mild bilateral neural foraminal stenosis. There is no central canal st enosis. IMPRESSION: 1. No fracture. 2. Severe cervical spondylosis. Reviewed, dictated and finalized at location A. RUFFER
--- NOTE | 2024-07-15 15:46 | ED.GENADULT ---
HPI - General Adult General Chief complaint: Fall Stated complaint: fall History of Present Illness HPI narrative: 88-year-old male presenting to the emergency department for evaluation after having a ground level fall. Patient states that he was attempting to take out the garbage but slipped on the icy driveway landing on his left hip. Patient is unsure if he struck his head but denies loss of consciousness. Patient does have dementia at baseline. Related Data Allergies Allergy/AdvReac Type Severity Reaction Status Date / Time No Known Allergies Allergy Unknown Verified 10/09/23 15:57 Review of Systems Review of Systems: All systems reviewed & are unremarkable except as noted in HPI and below PMFSH Past Medical History Medical History Dementia Incarcerated inguinal hernia Neck pain Surgical History Surgical History History of appendectomy S/P hernia repair Social History Social History Social History: The patient lives with his . He has 1 son and 1 daughter. His children are the durable power machine lay out worker for healthcare. The patient is retired from the [employer] anti retired from [employer]. The patient stated that he has never smoked cigarettes. He does not use any alcohol marijuana or illicit drugs. Code status full code Smoking status: Never smoker Tobacco type: cigarettes Second hand tobacco smoke exposure: No Alcohol intake: never Substance use: never Substance use type: does not use Lack of Transportation: No Lack of Food: Never True Current Housing: I Have Housing Concerned About Future Housing: No Difficulty Paying Gas/Electric Bills: No Difficulty Paying for Meds: No Currently Unemployed: No Education: High School Diploma/GED Difficulty w/ Childcare or Family Care: No Living arrangements: with family Occupation/Education: retired Gender identity (if verbalized by the patient): Male Spiritual care concerns: No Agree to blood products: Yes Exam Narrative: APPEARANCE: Well appearing, no pain, no distress, well-nourished. HEAD: normocephalic, atraumatic. EYES: PERRLA/EOMI, conjunctivae clear. NOSE: Normal no drainage EARS:TMS clear with good light reflex. THROAT: Pharynx clear, no exudate. NECK: Supple. No adenopathy, no masses. RESPIRATORY: Airway patent, respirations nonlabored. Clear to auscultation bilaterally, no rales, rhonchi, wheezing. CARDIOVASCULAR: Regular rate and rhythm without murmurs rubs or gallops. ABDOMINAL: Soft, nontender, nondistended, normal bowel sounds MUSCULOSKELETAL: Left hip pain NEURO: Alert. Cranial nerves II through XII intact. Good gait. Good coordination SKIN: Warm, dry. Normal Color PSYCHIATRIC: Normal affect/mood. Course Vital Signs Vital signs: Vital Signs Temperature 97.9 F 07/15/24 15:12 Pulse Rate 84 07/15/24 15:12 Respiratory Rate 18 07/15/24 15:12 Blood Pressure 175/83 H 07/15/24 15:12 Pulse Oximetry 100 07/15/24 15:12 Oxygen Delivery Room Air 07/15/24 15:12 Temperature 97.9 F 07/15/24 15:12 Pulse Rate 84 07/15/24 16:45 Respiratory Rate 23 H 07/15/24 16:45 Blood Pressure 175/83 H 07/15/24 15:12 Pulse Oximetry 100 07/15/24 16:45 Oxygen Delivery Room Air 07/15/24 15:12 Medical Decision Making MDM Narrative Medical decision making narrative: 88-year-old male present to the emergency department for evaluation after having a ground level fall injuring his left hip. Head neck CT were negative for acute abnormalities. Patient does have an intertroch fracture of the left femur. Patient is getting pain control with fentanyl and Dilaudid. I did discuss the case with orthopedics and patient will be admitted for anticipated total hip. Case was discussed with the hospitalist and was admitted. Differential Diagnosis Differential Diagnosis: Subdural hematoma, subarachnoid hemorrhage, hip fracture, lumbar fracture Vital Signs Vital Signs: Vital Signs Temperature 97.9 F 07/15/24 15:12 Pulse Rate 84 07/15/24 15:12 Respiratory Rate 18 07/15/24 15:12 Blood Pressure 175/83 H 07/15/24 15:12 Pulse Oximetry 100 07/15/24 15:12 Oxygen Delivery Room Air 07/15/24 15:12 Temperature 97.9 F 07/15/24 15:12 Pulse Rate 84 07/15/24 16:45 Respiratory Rate 23 H 07/15/24 16:45 Blood Pressure 175/83 H 07/15/24 15:12 Pulse Oximetry 100 07/15/24 16:45 Oxygen Delivery Room Air 07/15/24 15:12 Lab Data Lab results reviewed: Yes I reviewed the patient's lab results. Imaging Data Radiologist's impression: Impressions Head CT 07/15/24 16:14 IMPRESSION: No acute intracranial process. Cervical Spine CT 07/15/24 16:27 IMPRESSION: 1. No fracture. 2. Severe cervical spondylosis. Lumbar Spine CT 07/15/24 16:31 Impression: Degenerative disease, without acute compression fracture, as detailed above. Femur X-Ray 07/15/24 16:36 IMPRESSION: 1. Comminuted intertrochanteric fracture of proximal left femur. Hip/Pelvis X-Ray 07/15/24 16:37 IMPRESSION: 1. Comminuted intertrochanteric fracture of proximal left femur. 2. Mild osteoarthritis of the hips. Discharge Plan Discharge Clinical Impression: Closed intertrochanteric fracture Patient Disposition: Still a Patient Condition: Stable Patient Language: Pakistani Prescriptions: No Action quetiapine 25 mg tablet 25 mg PO QHS Qty: 30 4RF docusate sodium [Colace] 100 mg capsule 100 mg PO BID PRN (Reason: constipation) Qty: 14 0RF hydrocortisone acetate [Anusol-HC] 25 mg suppository 25 mg RECTAL DAILY Qty: 12 0RF finasteride [Proscar] 5 mg tablet 5 mg PO QAM Qty: 30 6RF fluoxetine 10 mg capsule 10 mg PO DAILY Qty: 90 1RF Follow-up/Referrals: Cheryl Campbell MD [Primary Care Provider] -
[2024-07-15] MEDS: fentaNYL CITRATE INJ (*CRX) 100 MCG/2 ML VIAL 50 MCG IV PUSH (15:56)
--- NOTE | 2024-07-15 17:29 | PC.NURSE ---
male purwick was applied for pt comfort
[2024-07-15] MEDS: HYDROmorphone HCL INJ (*CRX) 1 MG/ML SYR 0.5 MG IV PUSH (19:25)
[2024-07-15 19:58] LABS: Basophils Absolute Auto 0.1 K/mm3 (0.0-0.1); Basophils Percent Auto 0.5 % (0.2-1.2); Eosinophils Absolute Auto 0.1 K/mm3 (0-0.3); Eosinophils Percent Auto 0.8 % (0-4.4); Hematocrit 48.9 % (42.0-52.0); Hemoglobin 16.3 g/dL (14.0-18.0); Immature Granulocyte Absolute 0.03 K/mm3 (0.00-0.031); Immature Granulocyte Percent A 0.2 % (0-0.5); Lymphocytes Absolute Auto 1.12 K/mm3 (0.9-3.2); Lymphocytes Percent Auto 8.8 % (18.3-44.2); Mean Corpuscular HGB Conc 33.3 g/dl (32-36); Mean Corpuscular Volume 90.1 fl (80-100); Mean Platelet Volume 10.2 fl (7.4-10.4); Monocytes Absolute Auto 0.9 K/mm3 (0.1-0.6); Monocytes Percent Auto 7.2 % (2.6-8.5); Neutrophils Absolute Auto 10.5 K/mm3 (1.3-6.7); Neutrophils Percent Auto 82.5 % (45.5-73.1); Platelet Count Result 216 k/mm3 (150-375); Red Blood Count 5.43 M/mm3 (4.6-6.20); Red Cell Distribution Width 12.2 % (11.5-14.5); White Blood Count 12.7 K/mm3 (4.5-10.0)
[2024-07-15 20:06] LABS: Alanine Aminotransferase 19 U/L (6-50); Albumin Level 3.9 g/dL (3.5-5.1); Alkaline Phosphatase 65 U/L (38-126); Anion Gap 5 mmol/L (4-12); Aspartate Amino Transferase 23 U/L (17-59); Bilirubin,Total 0.7 mg/dL (0.2-1.3); Blood Urea Nitrogen 13 mg/dL (9-20); Calcium 9.3 mg/dL (8.4-10.2); Carbon Dioxide 29 mmol/L (22-30); Chloride 103 mmol/L (98-107); Estimated CRCL calculation 50 ml/min; Estimated Glomerular Filt Rate > 60; Glucose 115 mg/dL (65-110); Potassium 3.9 mmol/L (3.4-5.0); Sodium 137 mmol/L (137-145)
[2024-07-15 20:11] LABS: INR 1.1; Partial Thromboplastin Time 24.6 Seconds (22.3-36.8); Prothrombin Time 14.1 Seconds (11.1-14.7)
--- NOTE | 2024-07-15 20:19 | P.HP_ITS ---
H&P: HPI History of Present Illness Date/Time: 07/15/24 20:19 Chief Complaint: Fall Narrative: This is an 88-year-old male with past medical history significant for benign prostatic hyperplasia, DJD, dementia. Patient was brought to the emergency room after he had a fall while retrieving the garbage been out of his driveway fell on ice, patient denies any loss of consciousness. Preliminary workup was significant for left hip intertrochanteric fracture. Patient has been admitted for further evaluation management and treatment. EXAMINATION: CT brain wo con DATE: 07/15/2024 16:13 INDICATION: trauma . TECHNIQUE: Computed tomography (CT) of the head was performed without intravenous contrast. The mA was adjusted according to patient size. Iterative reconstruction technique was employed. The dose-length product was 681.00 mGy- cm. COMPARISON: 12/24/2022. FINDINGS: No acute intracranial hemorrhage or extra-axial fluid collection. No hydrocephalus, mass, or herniation. No acute ischemic infarct. Unremarkable dural venous sinus attenuation. No acute osseous abnormality. Left inferior maxillary mucosal thickening aerated spaces are clear. Moderate atrophy and chronic white matter change. Atherosclerotic intracranial calcification. Bilateral lens replacements. IMPRESSION: No acute intracranial process. EXAMINATION: XR femur LT min 2V DATE: 07/15/2024 16:34 INDICATION: Left leg pain. Injury. TECHNIQUE: 2 views of the left femur on 4 radiograph were obtained. COMPARISON: None. FINDINGS: There is a comminuted intertrochanteric fracture of proximal left f emur. The main distal fracture fragment demonstrates 22 degrees posterior angulation. There is mild left hip and knee osteoarthritis. IMPRESSION: 1. Comminuted intertrochanteric fracture of proximal left femur. EXAMINATION: XR hip LT 2V w AP pelvis DATE: 07/15/2024 16:34 INDICATION: Left hip pain. TECHNIQUE: An anteroposterior view of the pelvis and 2 views of left hip were obtained. COMPARISON: None. FINDINGS: There is a comminuted intertrochanteric fracture of proximal left femur. The main distal fracture fragment demonstrates 22 degrees posterior angulation. There is mild osteoarthritis of the hips. There is severe lower lumbar spondylosis. IMPRESSION: 1. Comminuted intertrochanteric fracture of proximal left femur. 2. Mild osteoarthritis of the hips. Review of Systems Review of Systems: Fall, left hip and back pain PMFSH Past Medical History Medical History Dementia Incarcerated inguinal hernia Neck pain Surgical History Surgical History History of appendectomy S/P hernia repair Family History Family History (Updated 07/15/24 @ 22:48 by Karen Ellis RN) Other Unknown family medical history Social History Social History Social History: The patient lives with his . He has 1 son and 1 daughter. His children are the durable power business attorney for healthcare. The patient is retired from the [employer] anti retired from [employer]. The patient stated that he has never smoked cigarettes. He does not use any alcohol marijuana or illicit drugs. Code status full code Smoking status: Never smoker Tobacco type: cigarettes Second hand tobacco smoke exposure: No Alcohol intake: never Substance use: never Substance use type: does not use Do You Feel Safe in your Home?: Yes Lack of Transportation: No Lack of Food: Never True Current Housing: I Have Housing Concerned About Future Housing: No Difficulty Paying Gas/Electric Bills: No Difficulty Paying for Meds: No Currently Unemployed: No Education: High School Diploma/GED Difficulty w/ Childcare or Family Care: No Living arrangements: with family Occupation/Education: retired Gender identity (if verbalized by the patient): Male Spiritual care concerns: No Agree to blood products: Yes Meds Home Medications and Allergies Home Medications ?Medication ?Instructions ?Recorded ?Confirmed ?Type finasteride 5 mg tablet (Proscar) 5 mg PO QAM #30 tabs 06/06/24 07/15/24 Rx fluoxetine 10 mg capsule 10 mg PO DAILY #90 caps 06/07/24 07/15/24 Rx Allergies Allergy/AdvReac Type Severity Reaction Status Date / Time No Known Allergies Allergy Unknown Verified 10/09/23 15:57 Vital Signs Vital Signs - 24 hr 07/15/24 15:12 07/15/24 16:36 07/15/24 16:45 Temperature 97.9 F Pulse Rate 84 81 84 Respiratory Rate 18 22 H 23 H Blood Pressure 175/83 H Pulse Oximetry 100 100 100 Oxygen Delivery Room Air 07/15/24 18:00 07/15/24 18:31 07/15/24 19:01 Temperature Pulse Rate 81 86 84 Respiratory Rate 16 20 20 Blood Pressure 138/72 132/79 Pulse Oximetry 99 100 100 Oxygen Delivery 07/15/24 19:31 Temperature Pulse Rate 83 Respiratory Rate 26 H Blood Pressure 146/72 H Pulse Oximetry 98 Oxygen Delivery Exam Narrative: Patient is laying in a stretcher Const: General: comfortable, no acute distress, well developed, alert, awake and average body habitus Nutritional Appearance: average body habitus Orientation/consciousness: patient oriented x3 HENMT: Head: normal to inspection, normocephalic and atraumatic Ears: hearing grossly normal bilaterally Face/Nose/Sinus: normal facial exam Face and sinus: normal facial exam Eyes: General: appearance normal, both eyes and all related structures Pupils: Equal, round and reactive pupils present EOM: EOMs intact bilaterally Neck: Neck: full ROM, no lymphadenopathy and no JVD Thyroid: thyroid normal Lymphatic: no lymphadenopathy noted Resp: Effort & Inspection: normal respiratory effort and able to speak in complete sentences Auscultation: clear to auscultation bilaterally Cardio: Jugular venous distension: no JVD Rate: regular rate Rhythm: regular rhythm Heart sounds: S1 normal heart sound present and S2 normal heart sound present GI: GI Palp: Yes Soft to palpation and Yes No hepatosplenomegaly present : General: Yes deferred Skin: Rashes: no rashes Wounds: no wounds Neuro: General: patient oriented x3 and CN's II-XI intact bilaterally Cranial nerves: Yes CN's II-XII intact bilaterally and Yes Equal, round and reactive pupils present Cognition (Neuro): normal cognition Speech: normal speech Motor exam (neuro): 5/5 motor strength present throughout Extrem: General: normal to inspection, full ROM, no joint enlargement and no pedal edema Other: Left lower extremity is externally rotated and shortened H&P: Results Labs Labs: Short CBC 07/15/24 Range/Units 19:37 WBC 12.7 H (4.5-10.0) K/mm3 Hgb 16.3 (14.0-18.0) g/dL Hct 48.9 (42.0-52.0) % Plt Count 216 (150-375) k/mm3 [facility] 07/15/24 19:37 Sodium 137 Potassium 3.9 Chloride 103 Carbon Dioxide 29 BUN 13 Creatinine 0.77 Glucose 115 H Calcium 9.3 Liver Function 07/15/24 Range/Units 19:37 Total Bilirubin 0.7 (0.2-1.3) mg/dL AST 23 (17-59) U/L ALT 19 (6-50) U/L Alkaline Phosphatase 65 (38-126) U/L Albumin 3.9 (3.5-5.1) g/dL Assessment and Plan Assessment and plan (1) Closed intertrochanteric fracture: Code(s): S72.143A - Displaced intertrochanteric fracture of unspecified femur, initial encounter for closed fracture Status: Acute Assessment and Plan: Admit to regular medical floor Pain management Bed rest Orthopedic surgery consult (2) Fall: Code(s): W19.XXXA - Unspecified fall, initial encounter Status: Acute Assessment and Plan: Fall precautions Hospitalist MIPS Advance Care Plan I have confirmed that the patient's Advanced Care Plan is present, code status is documented, or surrogate decision maker is listed in patient medical record.: Yes Medication Reconciliation I have utilized all available resources to obtain, update and review the patients current medications (includes all prescriptions, OTC, herbals, cannabi s, and nutritional supplements).: Yes
[2024-07-15] MEDS: HYDROmorphone HCL INJ (*CRX) 1 MG/ML SYR IV PUSH (21:49)
[2024-07-16] VITALS (14 sets, daily range): BP systolic 107–134; BP diastolic 53–66; PULSE 66–98; RESP 12–20; TEMP 36.4–37.7; O2SAT 95–100
[2024-07-16] MEDS: HYDROmorphone HCL INJ (*CRX) 1 MG/ML SYR IV PUSH ×2 (04:20→08:47)
--- NOTE | 2024-07-16 09:20 | PM.CNOR ---
Assessment and Plan Assessment and plan (1) Closed intertrochanteric fracture: Qualifiers: Encounter type: initial encounter Fracture alignment: displaced Laterality: left Qualified Code(s): S72.142A - Displaced intertrochanteric fracture of left femur, initial encounter for closed fracture Code(s): S72.143A - Displaced intertrochanteric fracture of unspecified femur, initial encounter for closed fracture Status: Acute Plan Displaced intertrochanteric fracture will benefit from ORIF. I will use a side plate and dynamic hip screw given the modest displacement which is amenable to anatomic reduction. We discussed the risks, benefits, and alternatives to surgery. Proceed with ORIF left hip Synthes DHS system. 2 hole plate if available. History of Present Illness HPI Consult date: 07/16/24 Chief complaint: Intertroch Fracture Left Narrative: Patient complains of acute hip pain. Fell from standing height. Slipped on his driveway. He has prior balance issues and uses a cane. No previous hip pain. Comfortable at rest. No numbness, tingling, or other associated symptoms. Review of Systems Review of Systems: Denies loss of consciousness. History of urinary retention history of sundowning. Patient demonstrates some confusion. Answers questions but often repeats himself. All systems reviewed & are unremarkable except as noted in HPI and below PMFSH Past Medical History Medical History Dementia Incarcerated inguinal hernia Neck pain Surgical History Surgical History History of appendectomy S/P hernia repair Family History Family History (Updated 07/15/24 @ 22:48 by Karen Ellis RN) Other Unknown family medical history Social History Social History Social History: The patient lives with his . He has 1 son and 1 daughter. His children are the durable power commercial attorney for healthcare. The patient is retired from the [employer] anti retired from [employer]. The patient stated that he has never smoked cigarettes. He does not use any alcohol marijuana or illicit drugs. Code status full code Smoking status: Never smoker Tobacco type: cigarettes Second hand tobacco smoke exposure: No Alcohol intake: never Substance use: never Substance use type: does not use Do You Feel Safe in your Home?: Yes Lack of Transportation: No Lack of Food: Never True Current Housing: I Have Housing Concerned About Future Housing: No Difficulty Paying Gas/Electric Bills: No Difficulty Paying for Meds: No Currently Unemployed: No Education: High School Diploma/GED Difficulty w/ Childcare or Family Care: No Living arrangements: with family Occupation/Education: retired Gender identity (if verbalized by the patient): Male Spiritual care concerns: No Agree to blood products: Yes Meds Home Medications and Allergies Home Medications ?Medication ?Instructions ?Recorded ?Confirmed ?Type finasteride 5 mg tablet (Proscar) 5 mg PO QAM #30 tabs 06/06/24 07/15/24 Rx fluoxetine 10 mg capsule 10 mg PO DAILY #90 caps 06/07/24 07/15/24 Rx Allergies Allergy/AdvReac Type Severity Reaction Status Date / Time No Known Allergies Allergy Unknown Verified 10/09/23 15:57 Vital Signs Vital Signs - 24 hr 07/15/24 15:12 07/15/24 16:36 07/15/24 16:45 Temperature 36.6 C Pulse Rate 84 81 84 Respiratory Rate 18 22 H 23 H Blood Pressure 175/83 H Pulse Oximetry 100 100 100 Oxygen Delivery Room Air 07/15/24 18:00 07/15/24 18:31 07/15/24 19:01 Temperature Pulse Rate 81 86 84 Respiratory Rate 16 20 20 Blood Pressure 138/72 132/79 Pulse Oximetry 99 100 100 Oxygen Delivery 07/15/24 19:31 07/15/24 19:32 07/15/24 20:01 Temperature Pulse Rate 83 85 79 Respiratory Rate 26 H 18 21 H Blood Pressure 146/72 H 102/85 Pulse Oximetry 98 100 99 Oxygen Delivery 07/15/24 20:45 07/15/24 21:33 07/15/24 22:18 Temperature Pulse Rate 79 79 Respiratory Rate 20 16 Blood Pressure Pulse Oximetry 99 97 100 Oxygen Delivery 07/15/24 22:31 07/16/24 04:36 07/16/24 08:47 Temperature 36.2 C L 36.4 C Pulse Rate 83 66 Respiratory Rate 20 20 Blood Pressure 154/82 H 118/66 Pulse Oximetry 100 100 97 Oxygen Delivery Room Air 07/16/24 08:49 Temperature Pulse Rate 73 Respiratory Rate Blood Pressure 134/62 Pulse Oximetry 100 Oxygen Delivery Exam Narrative: Lower extremity shortened and externally rotated. Const: General: no acute distress Eyes: General: appearance normal, both eyes and all related structures Resp: Effort & Inspection: normal respiratory effort GI: GI Palp: Yes Soft to palpation and No Guarding due to palpation present (GI) Urinary Catheter: Urinary Catheter: patent and draining and urine clear Skin: General skin exam: no rashes or lesions noted Neuro: Speech: normal speech Other: Wiggles toes well. Capillary refill brisk. Distal light touch sensation intact. Dorsalis pedis pulse palpable. Extrem: Other: No edema. Psych: Mental Status: mental status grossly normal Results Labs 07/15/24 19:37 07/15/24 19:37 Labs: Abnormal lab results 07/15/24 Range/Units 19:37 WBC 12.7 H (4.5-10.0) K/mm3 Neut % (Auto) 82.5 H (45.5-73.1) % Lymph % (Auto) 8.8 L (18.3-44.2) % [place] # (Auto) 0.9 H (0.1-0.6) K/mm3 Absolute Neuts (auto) 10.5 H (1.3-6.7) K/mm3 Glucose 115 H (65-110) mg/dL Total Protein 6.0 L (6.3-8.2) g/dL H & H 07/15/24 Range/Units 19:37 Hgb 16.3 (14.0-18.0) g/dL Hct 48.9 (42.0-52.0) % Coagulation 07/15/24 Range/Units 19:37 INR 1.1 All other labs normal. Quality VTE Prophylaxis VTE prophylaxis: mechanical ordered
--- NOTE | 2024-07-16 09:55 | PC.NURSE ---
To OR per bed, IV LAC. Report given to Cale CHIN.
[2024-07-16] MEDS: TRANEXAMIC ACID 1,000MG/ISO100 1,000 MG/100 ML BAG 200 MG IVPB (10:15)
--- NOTE | 2024-07-16 10:52 | WPDHPUPDATE1 ---
History and Physical Update Update Date/Time: 07/16/24 10:52 History and Physical has been reviewed, including an updated exam of the patient. There are NO changes in the patient's condition. Risks, benefits, and alternatives have been discussed and questions answered. Patient agrees to proceed with procedure.
--- NOTE | 2024-07-16 11:06 | WPDANESEPPF ---
Anes - Initial Pre Proc Eval Procedure: Operation Date: 07/16/24 12:00 Proposed Procedures p Open Reduction Internal Fixation Left Hip - Blair Conteh MD Date/Time: 07/16/24 11:06 Surgeon: Martin Beltran MD Pre Op Diagnosis: Intertroch Fracture Left Patient Data Age: 88 Gender: M Height: 1.7 m Weight: 62.8 kg Last Vital Signs Temp 36.8 C 07/16/24 10:15 Pulse 69 07/16/24 10:15 Resp 14 07/16/24 10:15 BP 113/61 07/16/24 10:15 Pulse Ox 98 07/16/24 10:15 O2 Del Method Room Air 07/16/24 10:15 Allergies Allergy/AdvReac Type Severity Reaction Status Date / Time No Known Allergies Allergy Unknown Verified 10/09/23 15:57 Home Medications ?Medication ?Instructions ?Recorded ?Confirmed ?Type finasteride 5 mg tablet (Proscar) 5 mg PO QAM #30 tabs 06/06/24 07/15/24 Rx fluoxetine 10 mg capsule 10 mg PO DAILY #90 caps 06/07/24 07/15/24 Rx Laboratory Tests 07/15/24 07/16/24 19:37 09:27 WBC 12.7 H K/mm3 (4.5-10.0) RBC 5.43 M/mm3 (4.6-6.20) Hgb 16.3 g/dL (14.0-18.0) Hct 48.9 % (42.0-52.0) MCV 90.1 fl (80-100) MCH 30.0 pg (26-34) MCHC 33.3 g/dl (32-36) RDW 12.2 % (11.5-14.5) Plt Count 216 k/mm3 (150-375) MPV 10.2 fl (7.4-10.4) Immature Gran % (Auto) 0.2 % (0-0.5) Neut % (Auto) 82.5 H % (45.5-73.1) Lymph % (Auto) 8.8 L % (18.3-44.2) [place] % (Auto) 7.2 % (2.6-8.5) Eos % (Auto) 0.8 % (0-4.4) Baso % (Auto) 0.5 % (0.2-1.2) Lymph # (Auto) 1.12 K/mm3 (0.9-3.2) [place] # (Auto) 0.9 H K/mm3 (0.1-0.6) Eos # (Auto) 0.1 K/mm3 (0-0.3) Baso # (Auto) 0.1 K/mm3 (0.0-0.1) Abs Immat Gran (auto) 0.03 K/mm3 (0.00-0.031) Absolute Neuts (auto) 10.5 H K/mm3 (1.3-6.7) Absolute Nucleated RBC 0.000 K/mm3 (0.0-0.012) Nucleated RBC % 0.0 % (0.0-0.2) PT 14.1 Seconds (11.1-14.7) INR 1.1 APTT 24.6 Seconds (22.3-36.8) Sodium 137 mmol/L (137-145) Potassium 3.9 mmol/L (3.4-5.0) Chloride 103 mmol/L (98-107) Carbon Dioxide 29 mmol/L (22-30) Anion Gap 5 mmol/L (4-12) BUN 13 mg/dL (9-20) Creatinine 0.77 mg/dL (0.7-1.3) Estim Creat Clear Calc 50 ml/min Estimated GFR > 60 (59 - ) Glucose 115 H mg/dL (65-110) Calcium 9.3 mg/dL (8.4-10.2) Total Bilirubin 0.7 mg/dL (0.2-1.3) AST 23 U/L (17-59) ALT 19 U/L (6-50) Alkaline Phosphatase 65 U/L (38-126) Total Protein 6.0 L g/dL (6.3-8.2) Albumin 3.9 g/dL (3.5-5.1) Blood Type O Positive Antibody Screen Negative Patient hx anesthesia problems: none Family hx anesthesia problems: none Results Review: All pre-operative results and documents have been reviewed as part of the pre-operative evaluation. [facility] Past Medical History Medical History Dementia Incarcerated inguinal hernia Neck pain Surgical History Surgical History S/P hernia repair History of appendectomy Family History Family History Other Unknown family medical history Social History Social History Social History: The patient lives with his . He has 1 son and 1 daughter. His children are the durable power professional model for healthcare. The patient is retired from the [employer] anti retired from [employer]. The patient stated that he has never smoked cigarettes. He does not use any alcohol marijuana or illicit drugs. Code status full code Smoking status: Never smoker Tobacco type: cigarettes Second hand tobacco smoke exposure: No Alcohol intake: never Substance use: never Substance use type: does not use Do You Feel Safe in your Home?: Yes Lack of Transportation: No Lack of Food: Never True Current Housing: I Have Housing Concerned About Future Housing: No Difficulty Paying Gas/Electric Bills: No Difficulty Paying for Meds: No Currently Unemployed: No Education: High School Diploma/GED Difficulty w/ Childcare or Family Care: No Living arrangements: with family Occupation/Education: retired Gender identity (if verbalized by the patient): Male Spiritual care concerns: No Agree to blood products: Yes Anes - Eval Final PreProcedure Day of Procedure 07/16/24 11:06 Patient weight: normal Heart: regular rate and rhythm Lungs: decreased breath sounds Airway: Mallampati scale class II Neurological: other (alert) Last oral intake: >/= 8 hours ASA classification: III Emergent: no Anesthetic plan: proceed Anesthesia type and monitoring: general LMA and standard monitoring Results Review: All pre-operative results and documents have been reviewed as part of the pre-operative evaluation. Informed Consent: The patient's anesthetic plan and its attendant risks and benefits were discussed with the patient/family/POA. Questions were solicited and answers provided to the satisfaction of the patient/family/POA.
[2024-07-16] MEDS: ceFAZolin 2 GM/D5W 50 ML 2 GM/50 ML BAG IVPB ×2 (11:23→20:35)
--- NOTE | 2024-07-16 11:37 | P.PNIM_ITS ---
Progress Note: A&P Assessment and Plan (1) Closed intertrochanteric fracture: Qualifiers: Encounter type: initial encounter Fracture alignment: displaced Laterality: left Qualified Code(s): S72.142A - Displaced intertrochanteric fracture of left femur, initial encounter for closed fracture Code(s): S72.143A - Displaced intertrochanteric fracture of unspecified femur, initial encounter for closed fracture Status: Acute Assessment and Plan: - XR 2VW L.Hip: 1. Comminuted intertrochanteric fracture of proximal left femur. 2. Mild osteoarthritis of the hips. - Ortho consulted per ER. - Maintain bedrest. - Pain mgt. - Further mgt per ortho. (2) Fall: Code(s): W19.XXXA - Unspecified fall, initial encounter Status: Acute Assessment and Plan: - Likely mechanical per patient. - No further w/u for now. - Fall precautions. (3) Leukocytosis: Code(s): D72.829 - Elevated white blood cell count, unspecified Status: Acute Assessment and Plan: - Likely reactive to fall. - No clinical signs of acute infection. - We'll consider further w/u if no improvement. (4) BPH (benign prostatic hyperplasia): Code(s): N40.0 - Benign prostatic hyperplasia without lower urinary tract symptoms Status: Chronic Assessment and Plan: - Continue finasteride. (5) Depression: Code(s): F32.A - Depression, unspecified Status: Acute Assessment and Plan: - Chronic and stable. - Continue fluoxetine. Plan Awaiting Ortho to evaluate for possible surgical intervention. Time Spent With Patient Time with patient: 15 - 25 minutes Subjective Date/time seen: 07/16/24 11:37 Patient states he's feeling well currently with no pain or other distressful symptoms. Interval history: Patient calm on bedrest and looks to be in no acute distress. Patient admitted following a fall episode at home. Imaging on admission in ER showed Left Hip fracture. Patient awaiting to see Ortho for possible interventions. Review of Systems Review of Systems: All systems reviewed & are unremarkable except as noted in HPI and below Exam Narrative: General: Fair appearing, no acute distress. HEENT: Atraumatic, PERRL, EOMI, moist mucosa. NECK: Supple. Abdomen: Soft, non-tender, non-distended, +ve BS X4 Quadrants. Lungs: Clear bilaterally. Heart: RRR, no murmurs. Neuro: Well oriented, CN II-XII grossly intact. Psych: Pleasant and co-operative. Objective Data Vital Signs Vital Signs: Vital Signs - 24 hr 07/15/24 15:12 07/15/24 16:36 07/15/24 16:45 Temperature 97.9 F Pulse Rate 84 81 84 Respiratory Rate 18 22 H 23 H Blood Pressure 175/83 H Pulse Oximetry 100 100 100 Oxygen Delivery Room Air 07/15/24 18:00 07/15/24 18:31 07/15/24 19:01 Temperature Pulse Rate 81 86 84 Respiratory Rate 16 20 20 Blood Pressure 138/72 132/79 Pulse Oximetry 99 100 100 Oxygen Delivery 07/15/24 19:31 07/15/24 19:32 07/15/24 20:01 Temperature Pulse Rate 83 85 79 Respiratory Rate 26 H 18 21 H Blood Pressure 146/72 H 102/85 Pulse Oximetry 98 100 99 Oxygen Delivery 07/15/24 20:45 07/15/24 21:33 07/15/24 22:18 Temperature Pulse Rate 79 79 Respiratory Rate 20 16 Blood Pressure Pulse Oximetry 99 97 100 Oxygen Delivery 07/15/24 22:31 07/16/24 04:36 07/16/24 08:47 Temperature 97.2 F L 97.6 F Pulse Rate 83 66 Respiratory Rate 20 20 Blood Pressure 154/82 H 118/66 Pulse Oximetry 100 100 97 Oxygen Delivery Room Air 07/16/24 08:49 07/16/24 10:15 Temperature 98.2 F Pulse Rate 73 69 Respiratory Rate 14 Blood Pressure 134/62 113/61 Pulse Oximetry 100 98 Oxygen Delivery Room Air Intake/Output Intake/Output: Intake & Output 07/13/24 07/14/24 07/15/24 07/16/24 23:59 23:59 23:59 23:59 Intake Total 0 Output Total 0 Balance 0 Meds/Results Medications: Active Medications Generic Name Dose Route Start Last Admin Trade Name Freq PRN Reason Stop Dose Admin Fentanyl Citrate 25 mcg 07/16/24 11:07 Fentanyl Citrate Inj (*Crx) 100 Mcg/2 Ml Vial IV PUSH Q2M PRN Pain Hydromorphone HCl 1 mg 07/16/24 04:11 07/16/24 08:47 Hydromorphone Hcl Inj (*Crx) 1 Mg/Ml Syr IV PUSH 1 mg Q3H PRN Administration Pain Rated 7-10 Lactated Ringer's 1,000 mls @ 30 mls/hr 07/16/24 11:10 Lr - Lactated Ringers Iv IV CONT .Q24H LAURIE Lactated Ringer's 1,000 mls @ 30 mls/hr 07/16/24 11:10 Lr - Lactated Ringers Iv IV CONT .Q24H LAURIE Ondansetron HCl 4 mg 07/16/24 11:07 Ondansetron Inj 4 Mg/2 Ml Vial IV PUSH ONCE PRN Nausea Tramadol HCl 50 mg 07/16/24 04:11 Tramadol Hcl (*Crx) 50 Mg Tablet PO Q4H PRN Pain Rated 4-6 Radiology Results: ITS Impressions Head CT 07/15/24 16:14 IMPRESSION: No acute intracranial process. Cervical Spine CT 07/15/24 16:27 IMPRESSION: 1. No fracture. 2. Severe cervical spondylosis. Lumbar Spine CT 07/15/24 16:31 Impression: Degenerative disease, without acute compression fracture, as detailed above. Femur X-Ray 07/15/24 16:36 IMPRESSION: 1. Comminuted intertrochanteric fracture of proximal left femur. Hip/Pelvis X-Ray 07/15/24 16:37 IMPRESSION: 1. Comminuted intertrochanteric fracture of proximal left femur. 2. Mild osteoarthritis of the hips. Labs Labs: Laboratory Results - last 24 hr 07/15/24 07/16/24 19:37 09:27 WBC 12.7 H RBC 5.43 Hgb 16.3 Hct 48.9 MCV 90.1 MCH 30.0 MCHC 33.3 RDW 12.2 Plt Count 216 MPV 10.2 Immature Gran % (Auto) 0.2 Neut % (Auto) 82.5 H Lymph % (Auto) 8.8 L [place] % (Auto) 7.2 Eos % (Auto) 0.8 Baso % (Auto) 0.5 Lymph # (Auto) 1.12 [place] # (Auto) 0.9 H Eos # (Auto) 0.1 Baso # (Auto) 0.1 Abs Immat Gran (auto) 0.03 Absolute Neuts (auto) 10.5 H Absolute Nucleated RBC 0.000 Nucleated RBC % 0.0 PT 14.1 INR 1.1 APTT 24.6 Sodium 137 Potassium 3.9 Chloride 103 Carbon Dioxide 29 Anion Gap 5 BUN 13 Creatinine 0.77 Estim Creat Clear Calc 50 Estimated GFR > 60 Glucose 115 H Calcium 9.3 Total Bilirubin 0.7 AST 23 ALT 19 Alkaline Phosphatase 65 Total Protein 6.0 L Albumin 3.9 Blood Type O Positive Antibody Screen Negative Quality VTE Prophylaxis VTE prophylaxis: mechanical ordered Hospitalist MIPS Advance Care Plan I have confirmed that the patient's Advanced Care Plan is present, code status is documented, or surrogate decision maker is listed in patient medical record.: Yes Medication Reconciliation I have utilized all available resources to obtain, update and review the patients current medications (includes all prescriptions, OTC, herbals, cannabis, and nutritional supplements).: Yes
[2024-07-16] MEDS: BUPIVACAINE/EPINEPHRINE 0.5% 50 ML VIAL 30 ML INFILTRATE (12:17)
--- NOTE | 2024-07-16 12:27 | PCOTNOTE ---
Pt. order cancelled as pt. on bedrest with plans for pt. to undergo surgical procedure for fx. Re-order when pt. safe to participate with therapy services
[2024-07-16] MEDS: LACTATED RINGERS 1,000 ML 30 ML IV CONT (13:18)
--- NOTE | 2024-07-16 13:53 | W.PM.PROC2 ---
Procedure Note - Detailed Date of Procedure 07/16/24 Pre-op Diagnosis Displaced intertrochanteric fracture left hip Post-op Diagnosis Same Procedure Performed ORIF left femur intertrochanteric fracture with DHS plate and screws. Surgeon Blair Coneth MD Anesthesia General Description of Procedure Preoperative antibiotics were given. A general anesthetic was administered. The patient was carefully placed on the fracture table. Gentle closed reduction was obtained. Biplanar fluoroscopy was used throughout the procedure to confirm anatomic reduction, and appropriate placement of all implants. The hip was prepped and draped in the usual sterile fashion. A longitudinal incision was created at the proximal femur. Lateral dissection was brought down through subcutaneous tissue to the fascia. The fascia was split in line with its fibers. The vastus lateralis was identified and elevated off of the intramuscular septum. The guide was placed along the femur and the guide pin placed into the center of the femoral head. The 135 degree guide was used. The pin was measured and the triple reamer used. The lag screw was placed 10 millimeters proximal to the subchondral bone. Appropriate alignment of the screw was placed and then the side plate was applied. It was compressed to the screw. Large fragment screws were placed through the plate as needed for stability. The wound was copiously irrigated. The vastus lateralis, and deep fascia were closed with running # 1 Vicryl suture. The subcutaneous tissues were closed with # 1 Vicryl suture followed by 2-0 Vicryl suture and jerad. A sterile bulky dressing was applied. The patient was extubated and brought to the recovery room in stable condition. There were no complications. Implants Synthes DHS plate system. Four hole plate. Estimated Blood Loss 300 Urine Output 0 Drains No Packing No Pathology None sent Complications No immediate complications Condition Stable Disposition PACU [facility] Billing Surgery - Charge Forward: Surgery Billing
--- NOTE | 2024-07-16 14:31 | PC.NURSE ---
Returned from OR per Bed. Report received from Gayatri CHIN.
[2024-07-16] MEDS: SODIUM CHLORIDE 0.9% IV 1,000 ML 125 ML IV CONT (15:01)
[2024-07-16] MEDS: oxyCODONE HCL (*CRX) 5 MG TAB IR PO (15:05)
[2024-07-16] MEDS: IBUPROFEN IV 800 MG/200 ML 800 MG/200 ML BAG 400 MG IVPB (17:16)
[2024-07-16] MEDS: SENNA/DOCUSATE SODIUM TABLET 2 TAB PO (17:18)
[2024-07-16] MEDS: ENOXAPARIN 30 MG/0.3 ML SYRINGE SUB-Q (20:35)
[2024-07-17] VITALS (9 sets, daily range): BP systolic 96–137; BP diastolic 50–76; PULSE 81–95; RESP 16–18; TEMP 35.9–36.7; O2SAT 94–100
[2024-07-17] MEDS: ceFAZolin 2 GM/D5W 50 ML 2 GM/50 ML BAG IVPB ×2 (03:09→13:08)
[2024-07-17] MEDS: oxyCODONE HCL (*CRX) 5 MG TAB IR PO ×4 (05:05→20:34)
--- NOTE | 2024-07-17 05:43 | PC.NURSE ---
Per orders, tadeo catheter d/c at 0540. Time due to void is 1140.
--- NOTE | 2024-07-17 08:42 | WPDANESPN ---
Anes - Prog Note Post-Op Date/Time: 07/17/24 08:42 Cardiovascular status: normal Respiratory status: normal Airway patency: baseline Mental status: baseline Post-Op hydration status: normal Vital Signs: Last Vital Signs Temp 97.6 F 07/17/24 04:08 Pulse 89 07/17/24 04:08 Resp 16 07/17/24 04:08 BP 118/62 07/17/24 04:08 Pulse Ox 97 07/17/24 04:08 O2 Del Method Room Air 07/16/24 20:00 O2 Flow Rate 6 07/16/24 13:45 Pain Score (VAS): 4 I/O: Intake & Output 07/16/24 07/17/24 07/17/24 23:59 07:59 15:59 Intake Total 2590 50 Output Total 650 Balance 2590 -600 Laboratory Tests 07/15/24 19:37 07/15/24 19:37 07/16/24 09:27 Blood Type O Positive Antibody Screen Negative Post-procedural complaints: none Patient Feedback: Patient satisfied with anesthetic care. pt suffers chronic neck pain and this seems to be causing him more discomfort than his hip pain.
[2024-07-17 08:53] LABS: Basophils Percent Auto 0.5 % (0.2-1.2); Eosinophils Absolute Auto 0.1 K/mm3 (0-0.3); Eosinophils Percent Auto 0.6 % (0-4.4); Hematocrit 38.9 % (42.0-52.0); Hemoglobin 12.7 g/dL (14.0-18.0); Immature Granulocyte Absolute 0.03 K/mm3 (0.00-0.031); Immature Granulocyte Percent A 0.4 % (0-0.5); Lymphocytes Absolute Auto 0.79 K/mm3 (0.9-3.2); Lymphocytes Percent Auto 9.8 % (18.3-44.2); Mean Corpuscular HGB Conc 32.6 g/dl (32-36); Mean Corpuscular Hemoglobin 30.7 pg (26-34); Mean Platelet Volume 10.2 fl (7.4-10.4); Monocytes Percent Auto 12.1 % (2.6-8.5); Neutrophils Absolute Auto 6.2 K/mm3 (1.3-6.7); Neutrophils Percent Auto 76.6 % (45.5-73.1); Platelet Count Result 159 k/mm3 (150-375); Red Blood Count 4.14 M/mm3 (4.6-6.20); Red Cell Distribution Width 12.5 % (11.5-14.5); White Blood Count 8.1 K/mm3 (4.5-10.0)
[2024-07-17] MEDS: SENNA/DOCUSATE SODIUM TABLET 2 TAB PO ×2 (08:58→16:05)
[2024-07-17] MEDS: FINASTERIDE 5 MG TABLET PO (08:58)
[2024-07-17] MEDS: FLUoxetine HCL 10 MG CAPSULE PO (08:58)
[2024-07-17] MEDS: ENOXAPARIN 30 MG/0.3 ML SYRINGE SUB-Q ×2 (08:59→20:33)
[2024-07-17] MEDS: polyethylene glycoL 3350 17 GM POWD.PACK PO (09:06)
--- NOTE | 2024-07-17 10:43 | P.PNOP_ITS ---
Progress Note: A&P Assessment and Plan (1) Closed intertrochanteric fracture: Qualifiers: Encounter type: initial encounter Fracture alignment: displaced Laterality: left Qualified Code(s): S72.142A - Displaced intertrochanteric fracture of left femur, initial encounter for closed fracture Code(s): S72.143A - Displaced intertrochanteric fracture of unspecified femur, initial encounter for closed fracture Status: Acute (2) Orthopedic aftercare: Code(s): Z47.89 - Encounter for other orthopedic aftercare Status: Acute Plan Postoperative day 1, status post right hip ORIF with DHS plate. Pain well controlled. Mobilizing well with therapy. Moderate confusion. Sitting comfortably in the chair. Alert and responsive but mildly confused. Wound healing well without drainage. No hematoma, no deformity. No warmth or erythema. No edema. Calves nontender, neurovascular status intact, wiggles toes. Progressing appropriately. Discharge planning. Lovenox for DVT prophylaxis. Subjective Subjective Date/Time Seen: 07/17/24 10:43 Objective Data Vital Signs Vital Signs: Vital Signs - 24 hr 07/16/24 13:18 07/16/24 13:30 07/16/24 13:45 Temperature 36.5 C Pulse Rate 98 93 92 Respiratory Rate 18 12 12 Blood Pressure 126/61 126/54 L 123/56 L Pulse Oximetry 98 99 99 Oxygen Delivery Simple Face Mask Simple Face Mask Simple Face Mask Oxygen Flow Rate 6 6 6 07/16/24 14:00 07/16/24 14:15 07/16/24 14:36 Temperature 36.7 C 37.7 C H Pulse Rate 91 97 93 Respiratory Rate 12 12 17 Blood Pressure 119/57 L 122/59 L 123/57 L Pulse Oximetry 99 95 96 Oxygen Delivery Room Air Room Air Oxygen Flow Rate 07/16/24 15:05 07/16/24 16:08 07/16/24 20:00 Temperature 36.8 C 37.0 C Pulse Rate 92 90 90 Respiratory Rate 17 16 16 Blood Pressure 118/54 L 122/53 L Pulse Oximetry 96 95 95 Oxygen Delivery Room Air Oxygen Flow Rate 07/16/24 22:06 07/17/24 00:22 07/17/24 04:08 Temperature 36.4 C 36.5 C 36.4 C Pulse Rate 80 84 89 Respiratory Rate 16 16 16 Blood Pressure 107/59 L 110/50 L 118/62 Pulse Oximetry 98 98 97 Oxygen Delivery Oxygen Flow Rate 07/17/24 08:57 07/17/24 09:58 Temperature Pulse Rate Respiratory Rate Blood Pressure Pulse Oximetry Oxygen Delivery Room Air Room Air Oxygen Flow Rate Intake/Output Intake/Output: Intake & Output 07/14/24 07/15/24 07/16/24 07/17/24 23:59 23:59 23:59 23:59 Intake Total 2740 50 Output Total 0 650 Balance 2740 -600 Meds/Results Medications: Active Medications Generic Name Dose Route Start Last Admin Trade Name Freq PRN Reason Stop Dose Admin Acetaminophen 500 mg 07/16/24 14:23 Acetaminophen 500 Mg Tablet PO Q6H PRN Pain Rated 1-3 Enoxaparin Sodium 30 mg 07/16/24 21:00 07/17/24 08:59 Enoxaparin 30 Mg/0.3 Ml Syringe SUB-Q 30 mg Q12HR LAURIE Administration Finasteride 5 mg 07/17/24 09:00 07/17/24 08:58 Finasteride 5 Mg Tablet PO 5 mg QAM LUARIE Administration Fluoxetine HCl 10 mg 07/17/24 09:00 07/17/24 08:58 Fluoxetine Hcl 10 Mg Capsule PO 10 mg DAILY LAURIE Administration Hydromorphone HCl 1 mg 07/16/24 14:23 Hydromorphone Hcl Inj (*Crx) 1 Mg/Ml Syr IV PUSH Q2H PRN Breakthrough Pain Rated 7-10 or NPO Hydromorphone HCl 0.5 mg 07/16/24 14:23 Hydromorphone Hcl Inj (*Crx) 1 Mg/Ml Syr IV PUSH Q2H PRN Breakthrough Pain Rated 4-6 or NPO Hydroxyzine Pamoate 50 mg 07/16/24 14:23 Hydroxyzine Pamoate 25 Mg Capsule PO Q4H PRN Itching Cefazolin Sodium 2 gm in 50 mls @ 100 mls/hr 07/16/24 20:00 07/17/24 03:39 Ancef 2 Gm/D5w 50 Ml IVPB 07/17/24 12:29 Infused Q8H LAURIE Infusion Ibuprofen 800 mg in 200 mls @ 400 mls/hr 07/16/24 14:23 07/16/24 17:45 Caldolor 800 Mg/200 Ml IVPB Infused Q6H PRN Infusion Breakthrough Pain Rated 1-3 or NPO Sodium Chloride 1,000 mls @ 125 mls/hr 07/16/24 14:23 07/16/24 23:01 Normal Saline Iv IV CONT Infused .Q8H LAURIE Infusion Naloxone HCl 0.1 mg 07/16/24 14:23 Naloxone Hcl 0.4 Mg/Ml Vial IV PUSH Q2M PRN Opiate Reversal Ondansetron HCl 4 mg 07/16/24 14:23 Ondansetron Inj 4 Mg/2 Ml Vial IV PUSH Q4H PRN Nausea And Vomiting Oxycodone HCl 2.5 mg 07/16/24 14:23 Oxycodone Hcl (*Crx) 2.5 Mg Tab Ir PO Q4H PRN Pain Rated 4-6 Oxycodone HCl 5 mg 07/16/24 14:23 07/17/24 08:59 Oxycodone Hcl (*Crx) 5 Mg Tab Ir PO 5 mg Q4H PRN Administration Pain Rated 7-10 Polyethylene Glycol 17 gm 07/17/24 09:00 07/17/24 09:06 Polyethylene Glycol 3350 17 Gm Powd.Pack PO 17 gm QAM LAURIE Administration Senna/Docusate Sodium 2 tab 07/16/24 17:00 07/17/24 08:58 Senna/Docusate Sodium Tablet PO 2 tab BID LAURIE Administration Radiology Results: ITS Impressions Head CT 07/15/24 16:14 IMPRESSION: No acute intracranial process. Cervical Spine CT 07/15/24 16:27 IMPRESSION: 1. No fracture. 2. Severe cervical spondylosis. Lumbar Spine CT 07/15/24 16:31 Impression: Degenerative disease, without acute compression fracture, as detailed above. Femur X-Ray 07/15/24 16:36 IMPRESSION: 1. Comminuted intertrochanteric fracture of proximal left femur. Hip/Pelvis X-Ray 07/15/24 16:37 IMPRESSION: 1. Comminuted intertrochanteric fracture of proximal left femur. 2. Mild osteoarthritis of the hips. Labs Labs: Laboratory Results - last 24 hr 07/17/24 08:47 WBC 8.1 RBC 4.14 L Hgb 12.7 L D Hct 38.9 L MCV 94.0 MCH 30.7 MCHC 32.6 RDW 12.5 Plt Count 159 MPV 10.2 Immature Gran % (Auto) 0.4 Neut % (Auto) 76.6 H Lymph % (Auto) 9.8 L [place] % (Auto) 12.1 H Eos % (Auto) 0.6 Baso % (Auto) 0.5 Lymph # (Auto) 0.79 L [place] # (Auto) 1.0 H Eos # (Auto) 0.1 Baso # (Auto) 0.0 Abs Immat Gran (auto) 0.03 Absolute Neuts (auto) 6.2 Absolute Nucleated RBC 0.000 Nucleated RBC % 0.0
--- NOTE | 2024-07-17 12:16 | PM.IMPN ---
Progress Note: A&P Assessment and Plan (1) Closed intertrochanteric fracture: Qualifiers: Encounter type: initial encounter Fracture alignment: displaced Laterality: left Qualified Code(s): S72.142A - Displaced intertrochanteric fracture of left femur, initial encounter for closed fracture Code(s): S72.143A - Displaced intertrochanteric fracture of unspecified femur, initial encounter for closed fracture Status: Acute Assessment and Plan: - XR 2VW L.Hip: 1. Comminuted intertrochanteric fracture of proximal left femur. 2. Mild osteoarthritis of the hips. - Ortho consulted per ER. - Patient underwent a successful RIF left femur intertrochanteric fracture with DHS plate and screws. - POD # 1. - Continue PT treatment with Ortho restrictions. - Pain meds PRN. - Lovenox for anticoagulation. - Fall precautions. - Further mgt per ortho. (2) Fall: Code(s): W19.XXXA - Unspecified fall, initial encounter Status: Acute Assessment and Plan: - Likely mechanical per patient. - No further w/u for now. - Fall precautions. (3) Leukocytosis: Code(s): D72.829 - Elevated white blood cell count, unspecified Status: Acute Assessment and Plan: - Likely reactive to fall. - No clinical signs of acute infection noted.. - Resolved. (4) BPH (benign prostatic hyperplasia): Code(s): N40.0 - Benign prostatic hyperplasia without lower urinary tract symptoms Status: Chronic Assessment and Plan: - Continue finasteride. (5) Depression: Code(s): F32.A - Depression, unspecified Status: Acute Assessment and Plan: - Chronic and stable. - Continue fluoxetine. Plan Awaiting Ortho to evaluate for possible surgical intervention. Time Spent With Patient Time with patient: 15 - 25 minutes Subjective Date/time seen: 07/17/24 12:16 Patient states he has a lot of pain to his left hip and awaiting pain meds from nurse. States he was comfortable before but pain started when he moved his left leg. Interval history: Patient on bedrest and looks to be in some slight distress with pain. Patient admitted following a fall episode at home. Imaging on admission in ER showed Left Hip fracture. Patient underwent a successful ORIF left femur intertrochanteric fracture with DHS plate and screws. Review of Systems Review of Systems: All systems reviewed & are unremarkable except as noted in HPI and below Exam Narrative: General: Fair appearing, slight distress with pain. HEENT: Atraumatic, PERRL, EOMI, moist mucosa. NECK: Supple. Abdomen: Soft, non-tender, non-distended, +ve BS X4 Quadrants. Lungs: Clear bilaterally. Heart: RRR, no murmurs. Neuro: Well oriented, CN II-XII grossly intact. Psych: Pleasant and co-operative. Objective Data Vital Signs Vital Signs: Vital Signs - 24 hr 07/16/24 13:18 07/16/24 13:30 07/16/24 13:45 Temperature 97.7 F Pulse Rate 98 93 92 Respiratory Rate 18 12 12 Blood Pressure 126/61 126/54 L 123/56 L Pulse Oximetry 98 99 99 Oxygen Delivery Simple Face Mask Simple Face Mask Simple Face Mask Oxygen Flow Rate 6 6 6 07/16/24 14:00 07/16/24 14:15 07/16/24 14:36 Temperature 98.0 F 99.9 F H Pulse Rate 91 97 93 Respiratory Rate 12 12 17 Blood Pressure 119/57 L 122/59 L 123/57 L Pulse Oximetry 99 95 96 Oxygen Delivery Room Air Room Air Oxygen Flow Rate 07/16/24 15:05 07/16/24 16:08 07/16/24 20:00 Temperature 98.2 F 98.6 F Pulse Rate 92 90 90 Respiratory Rate 17 16 16 Blood Pressure 118/54 L 122/53 L Pulse Oximetry 96 95 95 Oxygen Delivery Room Air Oxygen Flow Rate 07/16/24 22:06 07/17/24 00:22 07/17/24 04:08 Temperature 97.6 F 97.7 F 97.6 F Pulse Rate 80 84 89 Respiratory Rate 16 16 16 Blood Pressure 107/59 L 110/50 L 118/62 Pulse Oximetry 98 98 97 Oxygen Delivery Oxygen Flow Rate 07/17/24 08:00 07/17/24 08:08 07/17/24 08:57 Temperature 96.7 F L Pulse Rate 81 81 Respiratory Rate 18 18 Blood Pressure 96/76 L Pulse Oximetry 100 100 Oxygen Delivery Room Air Room Air Oxygen Flow Rate 07/17/24 09:58 Temperature Pulse Rate Respiratory Rate Blood Pressure Pulse Oximetry Oxygen Delivery Room Air Oxygen Flow Rate Intake/Output Intake/Output: Intake & Output 01/08/25 07/15/24 07/16/24 07/17/24 23:59 23:59 23:59 23:59 Intake Total 2740 290 Output Total 0 650 Balance 2740 -360 Meds/Results Medications: Active Medications Generic Name Dose Route Start Last Admin Trade Name Freq PRN Reason Stop Dose Admin Acetaminophen 500 mg 07/16/24 14:23 Acetaminophen 500 Mg Tablet PO Q6H PRN Pain Rated 1-3 Enoxaparin Sodium 30 mg 07/16/24 21:00 07/17/24 08:59 Enoxaparin 30 Mg/0.3 Ml Syringe SUB-Q 30 mg Q12HR LAURIE Administration Finasteride 5 mg 07/17/24 09:00 07/17/24 08:58 Finasteride 5 Mg Tablet PO 5 mg QAM LAURIE Administration Fluoxetine HCl 10 mg 07/17/24 09:00 07/17/24 08:58 Fluoxetine Hcl 10 Mg Capsule PO 10 mg DAILY LAURIE Administration Hydromorphone HCl 1 mg 07/16/24 14:23 Hydromorphone Hcl Inj (*Crx) 1 Mg/Ml Syr IV PUSH Q2H PRN Breakthrough Pain Rated 7-10 or NPO Hydromorphone HCl 0.5 mg 07/16/24 14:23 Hydromorphone Hcl Inj (*Crx) 1 Mg/Ml Syr IV PUSH Q2H PRN Breakthrough Pain Rated 4-6 or NPO Hydroxyzine Pamoate 50 mg 07/16/24 14:23 Hydroxyzine Pamoate 25 Mg Capsule PO Q4H PRN Itching Cefazolin Sodium 2 gm in 50 mls @ 100 mls/hr 07/16/24 20:00 07/17/24 03:39 Ancef 2 Gm/D5w 50 Ml IVPB 07/17/24 12:29 Infused Q8H LAURIE Infusion Ibuprofen 800 mg in 200 mls @ 400 mls/hr 07/16/24 14:23 07/16/24 17:45 Caldolor 800 Mg/200 Ml IVPB Infused Q6H PRN Infusion Breakthrough Pain Rated 1-3 or NPO Sodium Chloride 1,000 mls @ 125 mls/hr 07/16/24 14:23 07/16/24 23:01 Normal Saline Iv IV CONT Infused .Q8H LAURIE Infusion Naloxone HCl 0.1 mg 07/16/24 14:23 Naloxone Hcl 0.4 Mg/Ml Vial IV PUSH Q2M PRN Opiate Reversal Ondansetron HCl 4 mg 07/16/24 14:23 Ondansetron Inj 4 Mg/2 Ml Vial IV PUSH Q4H PRN Nausea And Vomiting Oxycodone HCl 2.5 mg 07/16/24 14:23 Oxycodone Hcl (*Crx) 2.5 Mg Tab Ir PO Q4H PRN Pain Rated 4-6 Oxycodone HCl 5 mg 07/16/24 14:23 07/17/24 08:59 Oxycodone Hcl (*Crx) 5 Mg Tab Ir PO 5 mg Q4H PRN Administration Pain Rated 7-10 Polyethylene Glycol 17 gm 07/17/24 09:00 07/17/24 09:06 Polyethylene Glycol 3350 17 Gm Powd.Pack PO 17 gm QAM LAURIE Administration Senna/Docusate Sodium 2 tab 07/16/24 17:00 07/17/24 08:58 Senna/Docusate Sodium Tablet PO 2 tab BID LAURIE Administration Radiology Results: ITS Impressions Head CT 07/15/24 16:14 IMPRESSION: No acute intracranial process. Cervical Spine CT 07/15/24 16:27 IMPRESSION: 1. No fracture. 2. Severe cervical spondylosis. Lumbar Spine CT 07/15/24 16:31 Impression: Degenerative disease, without acute compression fracture, as detailed above. Femur X-Ray 07/15/24 16:36 IMPRESSION: 1. Comminuted intertrochanteric fracture of proximal left femur. Hip/Pelvis X-Ray 07/15/24 16:37 IMPRESSION: 1. Comminuted intertrochanteric fracture of proximal left femur. 2. Mild osteoarthritis of the hips. Labs Labs: Laboratory Results - last 24 hr 07/17/24 08:47 WBC 8.1 RBC 4.14 L Hgb 12.7 L D Hct 38.9 L MCV 94.0 MCH 30.7 MCHC 32.6 RDW 12.5 Plt Count 159 MPV 10.2 Immature Gran % (Auto) 0.4 Neut % (Auto) 76.6 H Lymph % (Auto) 9.8 L [place] % (Auto) 12.1 H Eos % (Auto) 0.6 Baso % (Auto) 0.5 Lymph # (Auto) 0.79 L [place] # (Auto) 1.0 H Eos # (Auto) 0.1 Baso # (Auto) 0.0 Abs Immat Gran (auto) 0.03 Absolute Neuts (auto) 6.2 Absolute Nucleated RBC 0.000 Nucleated RBC % 0.0 Quality VTE Prophylaxis VTE prophylaxis: mechanical ordered and pharmacologic ordered Hospitalist MIPS Advance Care Plan I have confirmed that the patient's Advanced Care Plan is present, code status is documented, or surrogate decision maker is listed in patient medical record.: Yes Medication Reconciliation I have utilized all available resources to obtain, update and review the patients current medications (includes all prescriptions, OTC, herbals, cannabis, and nutritional supplements).: Yes
[2024-07-17] MEDS: ACETAMINOPHEN 500 MG TABLET PO (13:12)
[2024-07-18] MEDS: oxyCODONE HCL (*CRX) 5 MG TAB IR PO ×3 (05:05→18:25)
[2024-07-18 05:57] VITALS: BP 139/56; PULSE 87; RESP 16; TEMP 36.5; O2SAT 98
[2024-07-18 08:00] VITALS: PULSE 98; RESP 16; O2SAT 100
--- NOTE | 2024-07-18 09:19 | PM.PNORT ---
Progress Note: A&P Assessment and Plan (1) Closed intertrochanteric fracture: Qualifiers: Encounter type: initial encounter Fracture alignment: displaced Laterality: left Qualified Code(s): S72.142A - Displaced intertrochanteric fracture of left femur, initial encounter for closed fracture Code(s): S72.143A - Displaced intertrochanteric fracture of unspecified femur, initial encounter for closed fracture Status: Acute (2) Orthopedic aftercare: Code(s): Z47.89 - Encounter for other orthopedic aftercare Status: Acute Plan Postoperative day 2, status post right hip ORIF with DHS plate. Pain well controlled. Mobilizing okay with therapy. Moderate confusion and agitation. I do recommend discharge to SNF or rehab. Sitting comfortably in the chair. Alert and responsive but mildly confused and agitated. Wound healing well without drainage. No hematoma, no deformity. No warmth or erythema. No edema. Calves nontender, neurovascular status intact, wiggles toes. Progressing appropriately. Discharge planning in progress. Lovenox for DVT prophylaxis. Ortho instructions: ORIF left femur intertrochanteric fracture with DHS plate and screws. DOS: 07/16/24. D/C to SNF/rehab Follow up in office in 4-6 weeks with xray. Please call [facility] at for appointment details. Wound Care: remove jerad at 2 weeks post op. Daily dressing changes until healed. PT: Weight bearing as tolerated with a walker. DVT prophylaxis: continue Lovenox for 30 days total Pain medication: Tylenol. Avoid Narcotics due to confusion if possible. Subjective Subjective Date/Time Seen: 07/18/24 09:19 Interval history: Patient resting comfortably. Notes some pain in his back and bottom. Patient is agitated and slightly confused. Answered all questions. No other complaints. Review of Systems Review of Systems: All systems reviewed & are unremarkable except as noted in HPI and below Exam Narrative: 88 y/o male patient. Thin. Resting comfortably in bed. No acute distress. No erythema or ecchymosis. Dressing dry and intact without drainage. No rashes or lesions noted. Warm, normal appearing skin. Tenderness at the hip. No hematoma. Calf nontender. Distal pulses palpable. Normal capillary refill. Patient able to move and wiggle toes. Light touch sensation intact. Wearing compression socks. Objective Data Vital Signs Vital Signs: Vital Signs - 24 hr 07/17/24 09:58 07/17/24 12:08 07/17/24 14:00 Temperature 98.0 F 98.0 F Pulse Rate 95 95 Respiratory Rate 18 18 Blood Pressure 109/53 L 109/53 L Pulse Oximetry 97 97 Oxygen Delivery Room Air 07/17/24 16:08 07/17/24 20:00 07/17/24 23:00 Temperature 97.5 F L 97.7 F Pulse Rate 89 89 89 Respiratory Rate 18 18 16 Blood Pressure 137/59 L 119/69 Pulse Oximetry 100 100 94 Oxygen Delivery Room Air 07/18/24 05:57 Temperature 97.7 F Pulse Rate 87 Respiratory Rate 16 Blood Pressure 139/56 L Pulse Oximetry 98 Oxygen Delivery Intake/Output Intake/Output: Intake & Output 07/15/24 07/16/24 07/17/24 07/18/24 23:59 23:59 23:59 23:59 Intake Total 2740 890 300 Output Total 0 2000 600 Balance 2740 -1110 -300 Meds/Results Medications: Active Medications Generic Name Dose Route Start Last Admin Trade Name Freq PRN Reason Stop Dose Admin Acetaminophen 500 mg 07/16/24 14:23 07/17/24 13:12 Acetaminophen 500 Mg Tablet PO 500 mg Q6H PRN Administration Pain Rated 1-3 Enoxaparin Sodium 30 mg 07/16/24 21:00 07/17/24 20:33 Enoxaparin 30 Mg/0.3 Ml Syringe SUB-Q 30 mg Q12HR LAURIE Administration Finasteride 5 mg 07/17/24 09:00 07/17/24 08:58 Finasteride 5 Mg Tablet PO 5 mg QAM LAURIE Administration Fluoxetine HCl 10 mg 07/17/24 09:00 07/17/24 08:58 Fluoxetine Hcl 10 Mg Capsule PO 10 mg DAILY LAURIE Administration Hydromorphone HCl 1 mg 07/16/24 14:23 Hydromorphone Hcl Inj (*Crx) 1 Mg/Ml Syr IV PUSH Q2H PRN Breakthrough Pain Rated 7-10 or NPO Hydromorphone HCl 0.5 mg 07/16/24 14:23 Hydromorphone Hcl Inj (*Crx) 1 Mg/Ml Syr IV PUSH Q2H PRN Breakthrough Pain Rated 4-6 or NPO Hydroxyzine Pamoate 50 mg 07/16/24 14:23 Hydroxyzine Pamoate 25 Mg Capsule PO Q4H PRN Itching Ibuprofen 800 mg in 200 mls @ 400 mls/hr 07/16/24 14:23 07/16/24 17:45 Caldolor 800 Mg/200 Ml IVPB Infused Q6H PRN Infusion Breakthrough Pain Rated 1-3 or NPO Sodium Chloride 1,000 mls @ 125 mls/hr 07/16/24 14:23 07/16/24 23:01 Normal Saline Iv IV CONT Infused .Q8H LAURIE Infusion Naloxone HCl 0.1 mg 07/16/24 14:23 Naloxone Hcl 0.4 Mg/Ml Vial IV PUSH Q2M PRN Opiate Reversal Ondansetron HCl 4 mg 07/16/24 14:23 Ondansetron Inj 4 Mg/2 Ml Vial IV PUSH Q4H PRN Nausea And Vomiting Oxycodone HCl 2.5 mg 07/16/24 14:23 Oxycodone Hcl (*Crx) 2.5 Mg Tab Ir PO Q4H PRN Pain Rated 4-6 Oxycodone HCl 5 mg 07/16/24 14:23 07/18/24 05:05 Oxycodone Hcl (*Crx) 5 Mg Tab Ir PO 5 mg Q4H PRN Administration Pain Rated 7-10 Polyethylene Glycol 17 gm 07/17/24 09:00 07/17/24 09:06 Polyethylene Glycol 3350 17 Gm Powd.Pack PO 17 gm QAM LAURIE Administration Senna/Docusate Sodium 2 tab 07/16/24 17:00 07/17/24 16:05 Senna/Docusate Sodium Tablet PO 2 tab BID LAURIE Administration Radiology Results: ITS Impressions Head CT 07/15/24 16:14 IMPRESSION: No acute intracranial process. Cervical Spine CT 07/15/24 16:27 IMPRESSION: 1. No fracture. 2. Severe cervical spondylosis. Lumbar Spine CT 07/15/24 16:31 Impression: Degenerative disease, without acute compression fracture, as detailed above. Femur X-Ray 07/15/24 16:36 IMPRESSION: 1. Comminuted intertrochanteric fracture of proximal left femur. Hip/Pelvis X-Ray 07/15/24 16:37 IMPRESSION: 1. Comminuted intertrochanteric fracture of proximal left femur. 2. Mild osteoarthritis of the hips.
[2024-07-18] MEDS: ENOXAPARIN 30 MG/0.3 ML SYRINGE SUB-Q ×2 (09:25→20:37)
[2024-07-18] MEDS: FINASTERIDE 5 MG TABLET PO (09:25)
[2024-07-18] MEDS: SENNA/DOCUSATE SODIUM TABLET 2 TAB PO (09:25)
[2024-07-18] MEDS: FLUoxetine HCL 10 MG CAPSULE PO (09:25)
[2024-07-18 15:16] VITALS: BP 124/63; PULSE 98; RESP 16; TEMP 36.7; O2SAT 100
--- NOTE | 2024-07-18 16:30 | P.PNIM_ITS ---
Progress Note: A&P Assessment and Plan (1) Closed intertrochanteric fracture: Qualifiers: Encounter type: initial encounter Fracture alignment: displaced Laterality: left Qualified Code(s): S72.142A - Displaced intertrochanteric fracture of left femur, initial encounter for closed fracture Code(s): S72.143A - Displaced intertrochanteric fracture of unspecified femur, initial encounter for closed fracture Status: Acute Assessment and Plan: - XR 2VW L.Hip: 1. Comminuted intertrochanteric fracture of proximal left femur. 2. Mild osteoarthritis of the hips. - Seen by Ortho. - Underwent a successful RIF left femur intertrochanteric fracture with DHS plate and screws. - POD # 2. - Continue PT treatment with Ortho restrictions. - Pain meds PRN. - Lovenox for anticoagulation. - Fall precautions. - SNF placement recommended per PT. - Further mgt per ortho. (2) Fall: Code(s): W19.XXXA - Unspecified fall, initial encounter Status: Acute Assessment and Plan: - Likely mechanical per patient. - No further w/u for now. - Fall precautions. (3) Leukocytosis: Code(s): D72.829 - Elevated white blood cell count, unspecified Status: Acute Assessment and Plan: - Likely reactive to fall. - No clinical signs of acute infection noted. - Resolved. (4) BPH (benign prostatic hyperplasia): Code(s): N40.0 - Benign prostatic hyperplasia without lower urinary tract symptoms Status: Chronic Assessment and Plan: - Continue finasteride. (5) Depression: Code(s): F32.A - Depression, unspecified Status: Acute Assessment and Plan: - Chronic and stable. - Continue fluoxetine. Plan Awaiting Ortho to evaluate for possible surgical intervention. Time Spent With Patient Time with patient: 15 - 25 minutes Subjective Date/time seen: 07/18/24 09:00 Patient states he's comfortable currently. States he was able to ambulate with PT yesterday only to the bathroom. Interval history: Patient resting comfortably on bed. Currently denies any pain or distress and enjoying breakfast. Review of Systems Review of Systems: All systems reviewed & are unremarkable except as noted in HPI and below Exam Narrative: General: Well appearing, no acute distress. HEENT: Atraumatic, PERRL, EOMI, moist mucosa. NECK: Supple. Abdomen: Soft, non-tender, non-distended, +ve BS X4 Quadrants. Lungs: Clear bilaterally. Heart: RRR, no murmurs. Neuro: Fairly well oriented with some confusion episodes, CN II-XII grossly intact. Psych: Pleasant and co-operative. Objective Data Vital Signs Vital Signs: Vital Signs - 24 hr 07/17/24 20:00 07/17/24 23:00 07/18/24 05:57 Temperature 97.7 F 97.7 F Pulse Rate 89 89 87 Respiratory Rate 18 16 16 Blood Pressure 119/69 139/56 L Pulse Oximetry 100 94 98 Oxygen Delivery Room Air 07/18/24 08:00 07/18/24 13:08 07/18/24 15:16 Temperature 98.1 F Pulse Rate 98 98 Respiratory Rate 16 16 Blood Pressure 124/63 Pulse Oximetry 100 100 Oxygen Delivery Room Air Room Air Intake/Output Intake/Output: Intake & Output 07/15/24 07/16/24 07/17/24 07/18/24 23:59 23:59 23:59 23:59 Intake Total 2740 890 780 Output Total 0 2000 600 Balance 2740 -1110 180 Meds/Results Medications: Active Medications Generic Name Dose Route Start Last Admin Trade Name Freq PRN Reason Stop Dose Admin Acetaminophen 500 mg 07/16/24 14:23 07/17/24 13:12 Acetaminophen 500 Mg Tablet PO 500 mg Q6H PRN Administration Pain Rated 1-3 Enoxaparin Sodium 30 mg 07/16/24 21:00 07/18/24 09:25 Enoxaparin 30 Mg/0.3 Ml Syringe SUB-Q 30 mg Q12HR LAURIE Administration Finasteride 5 mg 07/17/24 09:00 07/18/24 09:25 Finasteride 5 Mg Tablet PO 5 mg QAM LAURIE Administration Fluoxetine HCl 10 mg 07/17/24 09:00 07/18/24 09:25 Fluoxetine Hcl 10 Mg Capsule PO 10 mg DAILY LAURIE Administration Hydromorphone HCl 1 mg 07/16/24 14:23 Hydromorphone Hcl Inj (*Crx) 1 Mg/Ml Syr IV PUSH Q2H PRN Breakthrough Pain Rated 7-10 or NPO Hydromorphone HCl 0.5 mg 07/16/24 14:23 Hydromorphone Hcl Inj (*Crx) 1 Mg/Ml Syr IV PUSH Q2H PRN Breakthrough Pain Rated 4-6 or NPO Hydroxyzine Pamoate 50 mg 07/16/24 14:23 Hydroxyzine Pamoate 25 Mg Capsule PO Q4H PRN Itching Ibuprofen 800 mg in 200 mls @ 400 mls/hr 07/16/24 14:23 07/16/24 17:45 Caldolor 800 Mg/200 Ml IVPB Infused Q6H PRN Infusion Breakthrough Pain Rated 1-3 or NPO Sodium Chloride 1,000 mls @ 125 mls/hr 07/16/24 14:23 07/16/24 23:01 Normal Saline Iv IV CONT Infused .Q8H LAURIE Infusion Naloxone HCl 0.1 mg 07/16/24 14:23 Naloxone Hcl 0.4 Mg/Ml Vial IV PUSH Q2M PRN Opiate Reversal Ondansetron HCl 4 mg 07/16/24 14:23 Ondansetron Inj 4 Mg/2 Ml Vial IV PUSH Q4H PRN Nausea And Vomiting Oxycodone HCl 2.5 mg 07/16/24 14:23 Oxycodone Hcl (*Crx) 2.5 Mg Tab Ir PO Q4H PRN Pain Rated 4-6 Oxycodone HCl 5 mg 07/16/24 14:23 07/18/24 14:00 Oxycodone Hcl (*Crx) 5 Mg Tab Ir PO 5 mg Q4H PRN Administration Pain Rated 7-10 Polyethylene Glycol 17 gm 07/17/24 09:00 07/18/24 09:25 Polyethylene Glycol 3350 17 Gm Powd.Pack PO Not Given QAM LAURIE Senna/Docusate Sodium 2 tab 07/16/24 17:00 07/18/24 09:25 Senna/Docusate Sodium Tablet PO 2 tab BID LAURIE Administration Radiology Results: ITS Impressions Head CT 07/15/24 16:14 IMPRESSION: No acute intracranial process. Cervical Spine CT 07/15/24 16:27 IMPRESSION: 1. No fracture. 2. Severe cervical spondylosis. Lumbar Spine CT 07/15/24 16:31 Impression: Degenerative disease, without acute compression fracture, as detailed above. Femur X-Ray 07/15/24 16:36 IMPRESSION: 1. Comminuted intertrochanteric fracture of proximal left femur. Hip/Pelvis X-Ray 07/15/24 16:37 IMPRESSION: 1. Comminuted intertrochanteric fracture of proximal left femur. 2. Mild osteoarthritis of the hips. Quality VTE Prophylaxis VTE prophylaxis: mechanical ordered and pharmacologic ordered Hospitalist MIPS Advance Care Plan I have confirmed that the patient's Advanced Care Plan is present, code status is documented, or surrogate decision maker is listed in patient medical record.: Yes Medication Reconciliation I have utilized all available resources to obtain, update and review the p atients current medications (includes all prescriptions, OTC, herbals, cannabis, and nutritional supplements).: Yes
[2024-07-18] MEDS: hydrOXYzine pamoate 25 MG CAPSULE 50 MG PO (18:25)
[2024-07-18 19:53] VITALS: BP 126/60; PULSE 85; RESP 16; TEMP 36.4; O2SAT 99
[2024-07-18 20:00] VITALS: PULSE 85; RESP 16; O2SAT 99
[2024-07-19] MEDS: oxyCODONE HCL (*CRX) 5 MG TAB IR PO ×2 (04:21→09:30)
[2024-07-19] MEDS: hydrOXYzine pamoate 25 MG CAPSULE 50 MG PO ×2 (04:22→11:39)
[2024-07-19 04:40] VITALS: BP 120/60; PULSE 80; RESP 16; TEMP 36.5; O2SAT 97
[2024-07-19 06:03] LABS: Basophils Percent Auto 0.7 % (0.2-1.2); Eosinophils Absolute Auto 0.2 K/mm3 (0-0.3); Eosinophils Percent Auto 3.7 % (0-4.4); Hematocrit 34.7 % (42.0-52.0); Hemoglobin 11.2 g/dL (14.0-18.0); Immature Granulocyte Absolute 0.02 K/mm3 (0.00-0.031); Immature Granulocyte Percent A 0.3 % (0-0.5); Lymphocytes Absolute Auto 0.94 K/mm3 (0.9-3.2); Lymphocytes Percent Auto 15.3 % (18.3-44.2); Mean Corpuscular HGB Conc 32.3 g/dl (32-36); Mean Corpuscular Hemoglobin 30.4 pg (26-34); Mean Platelet Volume 10.4 fl (7.4-10.4); Monocytes Absolute Auto 0.9 K/mm3 (0.1-0.6); Monocytes Percent Auto 14.3 % (2.6-8.5); Neutrophils Percent Auto 65.7 % (45.5-73.1); Platelet Count Result 177 k/mm3 (150-375); Red Blood Count 3.69 M/mm3 (4.6-6.20); Red Cell Distribution Width 12.3 % (11.5-14.5); White Blood Count 6.1 K/mm3 (4.5-10.0)
[2024-07-19 08:00] VITALS: PULSE 80; RESP 16; O2SAT 97
[2024-07-19] MEDS: polyethylene glycoL 3350 17 GM POWD.PACK PO (09:28)
[2024-07-19] MEDS: ENOXAPARIN 30 MG/0.3 ML SYRINGE SUB-Q (09:28)
[2024-07-19] MEDS: SENNA/DOCUSATE SODIUM TABLET 2 TAB PO (09:28)
[2024-07-19] MEDS: FINASTERIDE 5 MG TABLET PO (09:28)
[2024-07-19] MEDS: FLUoxetine HCL 10 MG CAPSULE PO (09:28)
[2024-07-19] MEDS: HYDROmorphone HCL INJ (*CRX) 1 MG/ML SYR IV PUSH (11:39)
--- NOTE | 2024-07-19 12:59 | P.DS_ITS ---
DS: Admitting Diagnosis Discharge Date 07/19/24 Admitting Diagnosis Left Hip Fracture DS: Discharge Diagnosis Discharge Diagnosis (1) Closed intertrochanteric fracture: Qualifiers: Encounter type: initial encounter Fracture alignment: displaced Laterality: left Qualified Code(s): S72.142A - Displaced intertrochanteric fracture of left femur, initial encounter for closed fracture Code(s): S72.143A - Displaced intertrochanteric fracture of unspecified femur, initial encounter for closed fracture Status: Acute Assessment and Plan: - Acute. (2) Fall: Code(s): W19.XXXA - Unspecified fall, initial encounter Status: Acute Assessment and Plan: - Acute. (3) Leukocytosis: Code(s): D72.829 - Elevated white blood cell count, unspecified Status: Acute Assessment and Plan: - Acute. (4) BPH (benign prostatic hyperplasia): Code(s): N40.0 - Benign prostatic hyperplasia without lower urinary tract symptoms Status: Chronic Assessment and Plan: - Chronic. (5) Depression: Code(s): F32.A - Depression, unspecified Status: Acute Assessment and Plan: - Chronic. Plan Discharge to SNF. DS: Summary Hospital Course Reason for hospitalization: Comminuted intertrochanteric fracture of proximal left femur. Hospital Course: Patient presented to the ER following a fall episode at home when he slid on snow at his driveway. He could not get himself up and had severe pain to his Left Hip so his called EMS. Pt was evaluated in the ER and XR L. Hip showed Comminuted intertrochanteric fracture of proximal left femur. Orthopedic surgeon was consulted and he recommended surgical intervention, and the pt underwent a successful RIF left femur intertrochanteric fracture with DHS plate and screws. Patient has been stable post-op and tolerating PT fairly well. He has been recommended for SNF placement for continued PT/OT. Patient will be discharged on Lovenox for anticoagulation post-op. All his other chronic conditions remained stable inpatient and pt is medically stable for discharge with no acute distress noted or reported prior to discharge. Status at Discharge Functional status at discharge: uses cane/walker Overall status at discharge: patient is progressing back to baseline Time Spent with Patient Time spent: Greater than 30 minutes Exam Narrative: General: Well appearing, no acute distress. HEENT: Atraumatic, PERRL, EOMI, moist mucosa. NECK: Supple. Abdomen: Soft, non-tender, non-distended, +ve BS X4 Quadrants. Lungs: Clear bilaterally. Heart: RRR, no murmurs. Skin: Clean, dry and intact dressing to Left Hip. Neuro: Fairly well oriented with some confusion episodes, CN II-XII grossly intact. Psych: Pleasant and co-operative. DS: Data Data Completed and Pending Labs on day of discharge: Labs from last 24 hours 07/19/24 05:36 WBC 6.1 RBC 3.69 L Hgb 11.2 L Hct 34.7 L MCV 94.0 MCH 30.4 MCHC 32.3 RDW 12.3 Plt Count 177 MPV 10.4 Immature Gran % (Auto) 0.3 Neut % (Auto) 65.7 Lymph % (Auto) 15.3 L Pitt % (Auto) 14.3 H Eos % (Auto) 3.7 Baso % (Auto) 0.7 Lymph # (Auto) 0.94 [place] # (Auto) 0.9 H Eos # (Auto) 0.2 Baso # (Auto) 0.0 Abs Immat Gran (auto) 0.02 Absolute Neuts (auto) 4.0 Absolute Nucleated RBC 0.000 Nucleated RBC % 0.0 Discharge Plan Discharge Attending physician on discharge: Martin Beltran Consulting providers: Blair Conteh Discharging Clinician: Liberty Humphreys Anticipated Discharge Date/Time: 07/19/24 13:03 Patient Disposition: SNF Activity: as tolerated Diet: as tolerated Discharge Instructions: Ortho instructions: ORIF left femur intertrochanteric fracture with DHS plate and screws. DOS: 07/16/24. * D/C to SNF/rehab * Follow up in office in 4-6 weeks with xray. Please call [facility] at for appointment details. * Wound Care: remove jerad at 2 weeks post op. Daily dressing changes until healed. * PT: Weight bearing as tolerated with a walker. * DVT prophylaxis: continue Lovenox for 30 days total * Pain medication: Tylenol. Avoid Narcotics due to confusion if possible. Patient Language: Kuwaiti Stand Alone Forms: General Discharge Information Follow-up/Referrals: Cheryl Campbell MD [Primary Care Provider] - 2 Weeks Blair Conteh MD [Physician] - 4 Weeks Discharge Medications: New ibuprofen 400 mg tablet 400 mg PO Q6H PRN (Reason: fever or pain) Qty: 30 0RF sennosides-docusate sodium [Senokot-S] 8.6-50 mg Tablet 2 tab PO BID Qty: 14 0RF enoxaparin 30 mg/0.3 mL Syringe 30 mg subcut Q12HR Qty: 28 0RF acetaminophen 500 mg Tablet 500 mg PO Q6H PRN (Reason: Pain Rated 1-3) Qty: 14 0RF Continued finasteride [Proscar] 5 mg tablet 5 mg PO QAM Qty: 30 6RF fluoxetine 10 mg capsule 10 mg PO DAILY Qty: 90 1RF Date of admission: 07/16/24 08:48 Primary Care Provider: Cheryl Campbell Admitting Provider: Martin Beltran Attending physician on admission: Martin Beltran Condition: Stable Quality VTE Prophylaxis VTE prophylaxis: pharmacologic ordered Hospitalist MIPS Heart Failure (Exclusion) Patient has history of Heart Transplant or Left Ventricular Assistive Device?: No IF YES, STOP HERE Heart Failure (Qualifier) Patient has current or prior documentation of LVEF less than or equal to 40%, or mod/servere depressed LVSF?: No IF NO, STOP HERE
[2024-07-19 14:00] VITALS: BP 123/68; PULSE 98; RESP 20; TEMP 36.8; O2SAT 100
--- NOTE | 2024-07-19 15:14 | PC.NURSE ---
Patient discharged to [facility], alert and orientated on Room Air. Family notified of DC. belongings with patient and EMS on sdischarged, IVs removed
== END 2024-07-19 15:00 | DRG 482 ==
LOC: ANHED 19:21 → ANH2MED 21:24
PROVIDERS: Orthopaedic Surgery; Admitting Provider Hospitalist; Emergency Provider Emergency Medicine; PCP Family Medicine; Visit Provider Nurse Practitioner Adult Health
PROC: 0QS734Z Reposition Left Upper Femur with Internal Fixation Device, Percutaneous Approach (ICD-10-PCS; principal; 2024-07-16 12:00)
DX: S72.142A Displaced intertrochanteric fracture of left femur, initial encounter for closed fracture (principal); W01.0XXA Fall on same level from slipping, tripping and stumbling without subsequent striking against object, initial encounter; D72.829 Elevated white blood cell count, unspecified; N40.0 Benign prostatic hyperplasia without lower urinary tract symptoms; F32.A Depression, unspecified; F03.90 Unspecified dementia, unspecified severity, without behavioral disturbance, psychotic disturbance, mood disturbance, and anxiety; Z90.49 Acquired absence of other specified parts of digestive tract
CPT/HCPCS: 36415; 70450; 72125; 72131; 73502; 73552; 80053; 85025; 85610; 85730; 86850; 86900; 86901; 96374; 96375; 96376; 97110; 97116; 97161; 97165; 97530; 97535; 99199; 99285; A9270; C1713; C1769; G0378; J0690; J1171; J1650; J1741; J2003; J2405; J2704; J3010; J7030; J7120